=== PATIENT | male | born 1965 | race Caucasian/White ===

== ENCOUNTER 2017-06-01 11:17 | Inpatient (IN) | payer BC, MEDICAID ==
[~2017-06-01] VITALS: Ht 165.1 cm; Wt 77.6 kg
[2017-06-01] MEDS ORDERED: PALI39DI IM (11:37)
[2017-06-01] MEDS ORDERED: HALO1 PO (11:37)
[2017-06-01 12:43] LABS: BASOPHILS % (AUTO) 0.6 % (0.0-2.0); HEMATOCRIT 48.6 % (41-53); HEMOGLOBIN 16.4 g/dL (13.5-17.5); LYMPHOCYTES # (AUTO) 3.1 K/uL (1.0-4.8); LYMPHOCYTES % (AUTO) 26.4 % (22.0-44.0); MEAN CORPUSCULAR HEMOGLOBIN 30.5 pg (26.0-34.0); MEAN CORPUSCULAR HGB CONC 33.8 G/dL (31.0-37.0); MEAN CORPUSCULAR VOLUME 90 fL (80-100); MONOCYTES # (AUTO) 0.8 K/uL (0.1-1.0); MONOCYTES % (AUTO) 6.9 % (2.0-9.0); NEUTROPHILS # (AUTO) 7.4 K/uL (1.8-7.7); NEUTROPHILS % (AUTO) 64.1 % (40.0-70.0); PLATELET COUNT (AUTO) 263 K/uL (150-450); RED BLOOD CELL COUNT(AUTO) 5.39 MIL/uL (4.50-5.90); RED CELL DISTRIBUTION WIDTH 13.9 % (11.5-14.5)
[2017-06-01] MEDS ORDERED: HALOPERIDOL 5 MG TABLET PO ONE (12:45)
[2017-06-01] MEDS ORDERED: LORazepam 2 MG TABLET PO ONE (12:45)
[2017-06-01 12:54] LABS: ANION GAP 9 mmol/L (8-16); CALCIUM, TOTAL 8.9 mg/dL (8.8-10.5); CARBON DIOXIDE 27 mmol/L (22-29); CHLORIDE 107 mmol/L (98-107); CREATININE 0.93 mg/dL (0.60-1.30); GLOMERULAR FILTR. RATE CALC > 60 mL/min (>60); GLUCOSE,RANDOM 94 mg/dL (70-110); SODIUM SERUM 143 mmol/L (136-145); UREA NITROGEN, BLOOD 11 mg/dL (7-18)
[2017-06-01 13:01] LABS: ALANINE AMINOTRANSFERASE 28 U/L (12-78); ALBUMIN 3.6 g/dL (3.4-5.0); ALKALINE PHOSPHATASE 94 U/L (46-116); ASPARTATE AMINOTRANSFERASE 25 U/L (15-37); BILIRUBIN,TOTAL 0.4 mg/dL (0.1-1.0); TOTAL PROTEIN, SERUM 7.5 g/dL (6.4-8.2)
[2017-06-01] MEDS ORDERED: LORazepam 2 MG TABLET PO PRN (13:15)
[2017-06-01] MEDS ORDERED: ZOLPIDEM TARTRATE 10 MG TABLET PO PRN (13:15)
[2017-06-01] MEDS ORDERED: HALOPERIDOL 5 MG TABLET PO PRN (13:15)
[2017-06-01 17:48] VITALS: BP 117/74
[2017-06-02 00:42] VITALS: BP 121/50
[2017-06-02 08:34] VITALS: BP 140/89
[2017-06-02] MEDS: HALOPERIDOL 5 MG TABLET PO SCH ×2 (08:43→16:33)
[2017-06-02] MEDS ORDERED: BISACODYL 5 MG EC TABLET PO PRN (08:45)
[2017-06-02 09:56] LABS: FREE T4 (FREE THYROXINE) 0.86 ng/dL (0.76-1.46); THYROID STIMULATING HORMONE 0.64 uIU/mL (0.36-3.74)
[2017-06-02 16:16] VITALS: BP 114/67
[2017-06-03 01:08] VITALS: BP_SYST 110; BP_SYST 118; BP_DIAS 65; BP_DIAS 67
[2017-06-03 08:30] VITALS: BP 118/83
[2017-06-03] MEDS: HALOPERIDOL 5 MG TABLET PO SCH ×2 (08:58→16:36)
[2017-06-03] MEDS: SERTRALINE HCL 50 MG TABLET PO SCH (08:58)
[2017-06-03] MEDS ORDERED: PALI234D IM (11:45)
[2017-06-03] MEDS ORDERED: HALO5 PO (11:45)
[2017-06-03] MEDS: NICOTINE 14 MG/24 HOUR PATCH TD SCH (12:22)
[2017-06-03 17:07] VITALS: BP 142/72
[2017-06-04 01:05] VITALS: BP 133/87
[2017-06-04 08:09] VITALS: BP 153/96
[2017-06-04] MEDS: SERTRALINE HCL 50 MG TABLET PO SCH (08:56)
[2017-06-04] MEDS: HALOPERIDOL 5 MG TABLET PO SCH ×2 (08:56→16:30)
[2017-06-04] MEDS: NICOTINE 14 MG/24 HOUR PATCH TD SCH (08:57)
[2017-06-04] MEDS: LISINOPRIL 20 MG TABLET PO SCH (10:23)
[2017-06-04 12:02] VITALS: BP 138/71
[2017-06-04 16:26] VITALS: BP 107/71
[2017-06-05 06:15] VITALS: BP 104/64
[2017-06-05 08:44] VITALS: BP 107/60
[2017-06-05] MEDS: SERTRALINE HCL 50 MG TABLET PO SCH (08:44)
[2017-06-05] MEDS: HALOPERIDOL 5 MG TABLET PO SCH ×2 (08:44→16:17)
[2017-06-05] MEDS: NICOTINE 14 MG/24 HOUR PATCH TD SCH (08:44)
[2017-06-05] MEDS: LISINOPRIL 20 MG TABLET PO SCH (08:51)
[2017-06-05 16:23] VITALS: BP 107/71
[2017-06-06 00:39] VITALS: BP 106/68
[2017-06-06 08:20] VITALS: BP 139/60
[2017-06-06] MEDS: NICOTINE 14 MG/24 HOUR PATCH TD SCH (08:34)
[2017-06-06] MEDS: HALOPERIDOL 5 MG TABLET PO SCH ×2 (08:34→16:14)
[2017-06-06] MEDS: SERTRALINE HCL 50 MG TABLET PO SCH (08:34)
[2017-06-06] MEDS: LISINOPRIL 20 MG TABLET PO SCH (08:34)
[2017-06-06] MEDS ORDERED: SERT50TA12 PO (15:47)
[2017-06-06] MEDS ORDERED: LISI-662 PO (15:48)
== END 2017-06-06 17:15 | disposition home or self-care (01) | DRG 885 ==
LOC: EMS 11:19 → B2X 14:21
PROVIDERS: ADMIT Psychiatry & Neurology Psychiatry; ATTEND Psychiatry & Neurology Psychiatry
DX: F25.0 Schizoaffective disorder, bipolar type (principal); R45.851 Suicidal ideations; Z91.14 Patient's other noncompliance with medication regimen; D72.829 Elevated white blood cell count, unspecified; F17.200 Nicotine dependence, unspecified, uncomplicated; K59.00 Constipation, unspecified; Z91.19 Patient's noncompliance with other medical treatment and regimen
CPT/HCPCS: 84439; 84443; G0480

== ENCOUNTER 2017-06-22 15:52 | Inpatient (IN) | payer BC, MEDICAID ==
[~2017-06-22] VITALS: Ht 165.1 cm; Wt 73.7 kg
[~2017-06-22 15:52] MED LIST: HALO5 PO; LISI-662 PO; SERT50TA12 PO
[2017-06-22 17:46] VITALS: BP 97/55
[2017-06-22] MEDS ORDERED: HALOPERIDOL 5 MG TABLET PO PRN (18:00)
[2017-06-22] MEDS ORDERED: ZOLPIDEM TARTRATE 10 MG TABLET PO PRN (18:00)
[2017-06-22 18:40] VITALS: BP 101/64
[2017-06-22] MEDS: LORazepam 2 MG TABLET PO PRN (18:45)
[2017-06-22] MEDS: HALOPERIDOL 5 MG TABLET PO SCH (18:45)
[2017-06-23 00:15] VITALS: BP 110/61
[2017-06-23] MEDS: HALOPERIDOL 5 MG TABLET PO SCH ×2 (08:24→16:06)
[2017-06-23] MEDS: SERTRALINE HCL 50 MG TABLET PO SCH (08:24)
[2017-06-23] MEDS: NICOTINE 21 MG/24 HOUR PATCH TD SCH (08:25)
[2017-06-23 08:27] VITALS: BP 108/62
[2017-06-23 08:28] LABS: BASOPHILS % (AUTO) 0.6 % (0.0-2.0); EOSINOPHILS % (AUTO) 2.2 % (1.0-6.0); HEMATOCRIT 43.8 % (41-53); HEMOGLOBIN 15.2 g/dL (13.5-17.5); LYMPHOCYTES # (AUTO) 2.5 K/uL (1.0-4.8); LYMPHOCYTES % (AUTO) 22.2 % (22.0-44.0); MEAN CORPUSCULAR HEMOGLOBIN 31.1 pg (26.0-34.0); MEAN CORPUSCULAR HGB CONC 34.7 G/dL (31.0-37.0); MEAN CORPUSCULAR VOLUME 90 fL (80-100); MONOCYTES # (AUTO) 1.4 K/uL (0.1-1.0); NEUTROPHILS # (AUTO) 7.2 K/uL (1.8-7.7); PLATELET COUNT (AUTO) 210 K/uL (150-450); RED BLOOD CELL COUNT(AUTO) 4.89 MIL/uL (4.50-5.90); RED CELL DISTRIBUTION WIDTH 13.4 % (11.5-14.5)
[2017-06-23 08:55] LABS: HEMOGLOBIN A1C 5.4 % (4.5-6.2)
[2017-06-23 09:18] LABS: ALANINE AMINOTRANSFERASE 23 U/L (12-78); ALBUMIN 3.2 g/dL (3.4-5.0); ALKALINE PHOSPHATASE 95 U/L (46-116); ANION GAP 8 mmol/L (8-16); ASPARTATE AMINOTRANSFERASE 19 U/L (15-37); BILIRUBIN,TOTAL 0.6 mg/dL (0.1-1.0); CALCIUM, TOTAL 8.3 mg/dL (8.8-10.5); CARBON DIOXIDE 28 mmol/L (22-29); CHLORIDE 104 mmol/L (98-107); CHOL/HDL RATIO 3.4 (4.2-7.3); CHOLESTEROL 116 mg/dL (131-200); CREATININE 0.74 mg/dL (0.60-1.30); FREE T4 (FREE THYROXINE) 1.01 ng/dL (0.76-1.46); GLOMERULAR FILTR. RATE CALC > 60 mL/min (>60); GLUCOSE,RANDOM 94 mg/dL (70-110); HDL CHOLESTEROL 34 mg/dL (40-60); LDL CHOL (CALC.) 66 mg/dL (0-130); POTASSIUM 3.8 mmol/L (3.5-5.1); SODIUM SERUM 140 mmol/L (136-145); THYROID STIMULATING HORMONE 0.59 uIU/mL (0.36-3.74); TOTAL PROTEIN, SERUM 6.4 g/dL (6.4-8.2); TRIGLYCERIDES 81 mg/dL (15-150); UREA NITROGEN, BLOOD 12 mg/dL (7-18)
[2017-06-23 17:16] VITALS: BP 101/63
[2017-06-24 01:41] VITALS: BP 104/65
[2017-06-24 08:07] VITALS: BP 116/61
[2017-06-24] MEDS: SERTRALINE HCL 50 MG TABLET PO SCH (08:19)
[2017-06-24] MEDS: HALOPERIDOL 5 MG TABLET PO SCH ×2 (08:19→16:15)
[2017-06-24] MEDS: NICOTINE 21 MG/24 HOUR PATCH TD SCH (08:19)
[2017-06-24 16:03] VITALS: BP 116/72
[2017-06-25 06:37] VITALS: BP 105/68
[2017-06-25 08:02] VITALS: BP 104/61
[2017-06-25] MEDS: HALOPERIDOL 5 MG TABLET PO SCH ×2 (08:07→16:01)
[2017-06-25] MEDS: SERTRALINE HCL 50 MG TABLET PO SCH (08:07)
[2017-06-25] MEDS: NICOTINE 21 MG/24 HOUR PATCH TD SCH (08:09)
[2017-06-25 16:13] VITALS: BP 112/70
[2017-06-25] MEDS: LORazepam 2 MG TABLET PO PRN (17:19)
[2017-06-26 01:15] VITALS: BP 108/71
[2017-06-26 08:08] VITALS: BP 127/71
[2017-06-26] MEDS: HALOPERIDOL 5 MG TABLET PO SCH (08:24)
[2017-06-26] MEDS: SERTRALINE HCL 50 MG TABLET PO SCH (08:24)
[2017-06-26] MEDS: NICOTINE 21 MG/24 HOUR PATCH TD SCH (08:24)
[2017-06-26 16:04] VITALS: BP 109/63
[2017-06-26] MEDS: HALOPERIDOL 10 MG TABLET PO SCH (16:42)
[2017-06-26] MEDS: BENZTROPINE MESYLATE 0.5 MG TABLET PO SCH (16:42)
[2017-06-27 05:58] VITALS: BP 135/67
[2017-06-27] MEDS: SERTRALINE HCL 50 MG TABLET PO SCH (08:01)
[2017-06-27] MEDS: BENZTROPINE MESYLATE 0.5 MG TABLET PO SCH (08:01)
[2017-06-27 08:02] VITALS: BP 112/78
[2017-06-27] MEDS: HALOPERIDOL 10 MG TABLET PO SCH ×2 (08:02→16:57)
[2017-06-27] MEDS: NICOTINE 21 MG/24 HOUR PATCH TD SCH (08:02)
[2017-06-27 16:55] VITALS: BP 109/64
[2017-06-27] MEDS: BENZTROPINE MESYLATE 2 MG TABLET PO SCH (16:57)
[2017-06-28 01:56] VITALS: BP 102/64
[2017-06-28 08:06] VITALS: BP 103/53
[2017-06-28] MEDS: HALOPERIDOL 10 MG TABLET PO SCH ×2 (08:32→16:31)
[2017-06-28] MEDS: BENZTROPINE MESYLATE 2 MG TABLET PO SCH ×2 (08:32→16:31)
[2017-06-28] MEDS: SERTRALINE HCL 50 MG TABLET PO SCH (08:32)
[2017-06-28] MEDS: NICOTINE 21 MG/24 HOUR PATCH TD SCH (08:32)
[2017-06-28] MEDS ORDERED: HALOPERIDOL DECANOATE 100 MG/ML VIAL IM SCH (09:00)
[2017-06-28 16:16] VITALS: BP 111/72
[2017-06-28 17:08] VITALS: BP 124/84
[2017-06-28] MEDS ORDERED: ACETAMINOPHEN 325 MG TABLET PO PRN (17:15)
[2017-06-29 00:06] VITALS: BP 104/64
[2017-06-29 08:00] VITALS: BP 114/66
[2017-06-29] MEDS: HALOPERIDOL 10 MG TABLET PO SCH ×2 (08:20→16:31)
[2017-06-29] MEDS: BENZTROPINE MESYLATE 2 MG TABLET PO SCH ×2 (08:20→16:31)
[2017-06-29] MEDS: SERTRALINE HCL 50 MG TABLET PO SCH (08:20)
[2017-06-29] MEDS: NICOTINE 21 MG/24 HOUR PATCH TD SCH (08:20)
[2017-06-29 16:12] VITALS: BP 103/63
[2017-06-30 06:08] VITALS: BP 105/63
[2017-06-30 08:08] VITALS: BP 124/70
[2017-06-30] MEDS: BENZTROPINE MESYLATE 2 MG TABLET PO SCH ×2 (08:16→16:16)
[2017-06-30] MEDS: NICOTINE 21 MG/24 HOUR PATCH TD SCH (08:16)
[2017-06-30] MEDS: SERTRALINE HCL 50 MG TABLET PO SCH (08:16)
[2017-06-30] MEDS: HALOPERIDOL 10 MG TABLET PO SCH ×2 (08:16→16:17)
[2017-06-30 16:24] VITALS: BP 115/69
[2017-07-01 06:39] VITALS: BP 102/63
[2017-07-01] MEDS: BENZTROPINE MESYLATE 2 MG TABLET PO SCH ×2 (08:07→16:32)
[2017-07-01] MEDS: SERTRALINE HCL 50 MG TABLET PO SCH (08:07)
[2017-07-01] MEDS: NICOTINE 21 MG/24 HOUR PATCH TD SCH (08:08)
[2017-07-01] MEDS: HALOPERIDOL 10 MG TABLET PO SCH ×2 (08:08→16:32)
[2017-07-01 08:42] VITALS: BP 118/60
[2017-07-01 16:28] VITALS: BP 108/78
[2017-07-02 00:44] VITALS: BP 103/67
[2017-07-02] MEDS: SERTRALINE HCL 50 MG TABLET PO SCH (08:12)
[2017-07-02] MEDS: HALOPERIDOL 10 MG TABLET PO SCH ×2 (08:12→16:06)
[2017-07-02] MEDS: BENZTROPINE MESYLATE 2 MG TABLET PO SCH ×2 (08:12→16:06)
[2017-07-02] MEDS: NICOTINE 21 MG/24 HOUR PATCH TD SCH (08:12)
[2017-07-02 08:41] VITALS: BP 100/60
[2017-07-02 16:00] VITALS: BP 106/60
[2017-07-03 00:23] VITALS: BP 105/61
[2017-07-03 08:47] VITALS: BP 100/77
[2017-07-03] MEDS: HALOPERIDOL 10 MG TABLET PO SCH ×2 (08:52→16:44)
[2017-07-03] MEDS: BENZTROPINE MESYLATE 2 MG TABLET PO SCH ×2 (08:52→16:44)
[2017-07-03] MEDS: SERTRALINE HCL 50 MG TABLET PO SCH (08:52)
[2017-07-03] MEDS: NICOTINE 21 MG/24 HOUR PATCH TD SCH (08:52)
[2017-07-03 16:23] VITALS: BP 108/68
[2017-07-04 05:59] VITALS: BP 115/79
[2017-07-04] MEDS: HALOPERIDOL 10 MG TABLET PO SCH ×2 (08:11→16:30)
[2017-07-04] MEDS: BENZTROPINE MESYLATE 2 MG TABLET PO SCH ×2 (08:11→16:30)
[2017-07-04] MEDS: SERTRALINE HCL 50 MG TABLET PO SCH (08:11)
[2017-07-04] MEDS: NICOTINE 21 MG/24 HOUR PATCH TD SCH (08:12)
[2017-07-04 08:46] VITALS: BP 119/69
[2017-07-04] MEDS ORDERED: BENZ2TAB10 PO (09:43)
[2017-07-04] MEDS ORDERED: HALO5TAB23 PO (09:43)
[2017-07-04] MEDS ORDERED: SERT25TA PO (09:44)
[2017-07-04] MEDS ORDERED: NICO-704 TD (09:45)
[2017-07-04] MEDS ORDERED: HALO100V4 IM (09:46)
[2017-07-04 16:01] VITALS: BP 108/62
[2017-07-05 01:56] VITALS: BP 102/65
[2017-07-05] MEDS: SERTRALINE HCL 50 MG TABLET PO SCH (08:30)
[2017-07-05] MEDS: BENZTROPINE MESYLATE 2 MG TABLET PO SCH ×2 (08:30→16:41)
[2017-07-05] MEDS: NICOTINE 21 MG/24 HOUR PATCH TD SCH (08:30)
[2017-07-05] MEDS: HALOPERIDOL 10 MG TABLET PO SCH ×2 (08:30→16:41)
[2017-07-05 09:20] VITALS: BP 105/62
[2017-07-05 16:16] VITALS: BP 102/62
[2017-07-06 06:42] VITALS: BP 100/60
[2017-07-06] MEDS: SERTRALINE HCL 50 MG TABLET PO SCH (08:07)
[2017-07-06] MEDS: NICOTINE 21 MG/24 HOUR PATCH TD SCH (08:07)
[2017-07-06] MEDS: BENZTROPINE MESYLATE 2 MG TABLET PO SCH ×2 (08:07→16:32)
[2017-07-06] MEDS: HALOPERIDOL 10 MG TABLET PO SCH ×2 (08:07→16:32)
[2017-07-06 08:30] VITALS: BP 106/69
[2017-07-06 16:17] VITALS: BP 103/62
[2017-07-07 00:20] VITALS: BP 100/63
[2017-07-07 05:13] VITALS: BP 115/68
[2017-07-07 08:16] VITALS: BP 102/60
[2017-07-07] MEDS: SERTRALINE HCL 50 MG TABLET PO SCH (08:52)
[2017-07-07] MEDS: HALOPERIDOL 10 MG TABLET PO SCH ×2 (08:52→16:48)
[2017-07-07] MEDS: BENZTROPINE MESYLATE 2 MG TABLET PO SCH ×2 (08:57→16:48)
[2017-07-07] MEDS: NICOTINE 21 MG/24 HOUR PATCH TD SCH (08:58)
[2017-07-07 16:39] VITALS: BP 101/69
[2017-07-08 03:00] VITALS: BP 103/66
[2017-07-08 08:00] VITALS: BP 101/54
[2017-07-08] MEDS: NICOTINE 21 MG/24 HOUR PATCH TD SCH (08:12)
[2017-07-08] MEDS: BENZTROPINE MESYLATE 2 MG TABLET PO SCH ×2 (08:12→17:13)
[2017-07-08] MEDS: HALOPERIDOL 10 MG TABLET PO SCH ×2 (08:12→17:13)
[2017-07-08] MEDS: SERTRALINE HCL 50 MG TABLET PO SCH (08:12)
[2017-07-08 16:21] VITALS: BP 102/66
[2017-07-09] VITALS: BP 102/60
[2017-07-09] MEDS: NICOTINE 21 MG/24 HOUR PATCH TD SCH (08:10)
[2017-07-09] MEDS: HALOPERIDOL 10 MG TABLET PO SCH ×2 (08:10→16:53)
[2017-07-09] MEDS: SERTRALINE HCL 50 MG TABLET PO SCH (08:10)
[2017-07-09] MEDS: BENZTROPINE MESYLATE 2 MG TABLET PO SCH ×2 (08:10→16:53)
[2017-07-09 09:11] VITALS: BP 98/66
[2017-07-09 16:25] VITALS: BP 104/62
[2017-07-10 01:25] VITALS: BP 102/60
[2017-07-10] MEDS: BENZTROPINE MESYLATE 2 MG TABLET PO SCH (08:13)
[2017-07-10] MEDS: HALOPERIDOL 10 MG TABLET PO SCH (08:13)
[2017-07-10] MEDS: NICOTINE 21 MG/24 HOUR PATCH TD SCH (08:13)
[2017-07-10] MEDS: SERTRALINE HCL 50 MG TABLET PO SCH (08:13)
[2017-07-10] MEDS ORDERED: HALO100V4 IM (08:37)
[2017-07-10 09:19] VITALS: BP 109/53
== END 2017-07-10 10:17 | disposition home or self-care (01) | DRG 885 ==
LOC: EDBD → B2X 17:52
PROVIDERS: ADMIT Psychiatry & Neurology Psychiatry; ATTEND Psychiatry & Neurology Psychiatry
DX: F25.0 Schizoaffective disorder, bipolar type (principal); R45.851 Suicidal ideations; F29 Unspecified psychosis not due to a substance or known physiological condition; F41.9 Anxiety disorder, unspecified; I10 Essential (primary) hypertension; D72.829 Elevated white blood cell count, unspecified; Z79.899 Other long term (current) drug therapy; Z91.14 Patient's other noncompliance with medication regimen
CPT/HCPCS: 83036; 84439; 84443; 87081; J1631

== ENCOUNTER 2017-09-18 17:02 | Inpatient (IN) | payer MEDICARE, MEDICAID ==
[~2017-09-18] VITALS: Ht 165.1 cm; Wt 83.5 kg
[~2017-09-18 17:02] MED LIST changes: +BENZ2TAB10 PO; +HALO10 PO; +HALO100V4 IM; -HALO5 PO; -LISI-662 PO; +LORA10TA7 PO
[2017-09-18] MEDS ORDERED: LORazepam 2 MG TABLET PO PRN (18:00)
[2017-09-18] MEDS ORDERED: HALOPERIDOL 5 MG TABLET PO PRN (18:00)
[2017-09-18] MEDS ORDERED: ZOLPIDEM TARTRATE 10 MG TABLET PO PRN (18:00)
[2017-09-18 18:46] VITALS: BP 100/72
[2017-09-18] MEDS ORDERED: PNEUMOCOCCAL VACCINE POLYVALENT 0.5 ML VIAL [PPSV23] IM ONE (20:30)
[2017-09-18] MEDS: BENZTROPINE MESYLATE 2 MG TABLET PO SCH (20:49)
[2017-09-18] MEDS: HALOPERIDOL 10 MG TABLET PO SCH (20:50)
[2017-09-19 00:05] VITALS: BP 102/60
[2017-09-19 08:21] VITALS: BP 105/67
[2017-09-19] MEDS: HALOPERIDOL 10 MG TABLET PO SCH ×2 (08:46→16:40)
[2017-09-19] MEDS: BENZTROPINE MESYLATE 2 MG TABLET PO SCH ×2 (08:46→16:40)
[2017-09-19] MEDS: SERTRALINE HCL 50 MG TABLET PO SCH (08:46)
[2017-09-19 08:53] LABS: BASOPHILS % (AUTO) 0.4 % (0.0-2.0); EOSINOPHILS % (AUTO) 1.7 % (1.0-6.0); HEMATOCRIT 44.4 % (41-53); HEMOGLOBIN 15.4 g/dL (13.5-17.5); LYMPHOCYTES # (AUTO) 2.6 K/uL (1.0-4.8); LYMPHOCYTES % (AUTO) 21.4 % (22.0-44.0); MEAN CORPUSCULAR HEMOGLOBIN 31.2 pg (26.0-34.0); MEAN CORPUSCULAR HGB CONC 34.7 G/dL (31.0-37.0); MEAN CORPUSCULAR VOLUME 90 fL (80-100); MONOCYTES # (AUTO) 0.8 K/uL (0.1-1.0); MONOCYTES % (AUTO) 6.7 % (2.0-9.0); NEUTROPHILS # (AUTO) 8.6 K/uL (1.8-7.7); NEUTROPHILS % (AUTO) 69.8 % (40.0-70.0); PLATELET COUNT (AUTO) 248 K/uL (150-450); RED BLOOD CELL COUNT(AUTO) 4.94 MIL/uL (4.50-5.90); RED CELL DISTRIBUTION WIDTH 13.8 % (11.5-14.5)
[2017-09-19 09:47] LABS: HEMOGLOBIN A1C 5.9 % (4.5-6.2)
[2017-09-19 10:54] LABS: ALANINE AMINOTRANSFERASE 27 U/L (12-78); ALBUMIN 3.2 g/dL (3.4-5.0); ALKALINE PHOSPHATASE 89 U/L (46-116); ANION GAP 9 mmol/L (8-16); ASPARTATE AMINOTRANSFERASE 20 U/L (15-37); BILIRUBIN,TOTAL 0.2 mg/dL (0.1-1.0); CALCIUM, TOTAL 8.2 mg/dL (8.8-10.5); CARBON DIOXIDE 26 mmol/L (22-29); CHLORIDE 104 mmol/L (98-107); CHOLESTEROL 155 mg/dL (131-200); CREATININE 0.98 mg/dL (0.60-1.30); GLOMERULAR FILTR. RATE CALC > 60 mL/min (>60); GLUCOSE,RANDOM 98 mg/dL (70-110); HDL CHOLESTEROL 31 mg/dL (40-60); LDL CHOL (CALC.) 71 mg/dL (0-130); POTASSIUM 3.9 mmol/L (3.5-5.1); SODIUM SERUM 139 mmol/L (136-145); THYROID STIMULATING HORMONE 0.84 uIU/mL (0.36-3.74); TRIGLYCERIDES 263 mg/dL (15-150); UREA NITROGEN, BLOOD 17 mg/dL (7-18)
[2017-09-19 13:02] LABS: FREE T4 (FREE THYROXINE) 0.82 ng/dL (0.76-1.46)
[2017-09-19 16:17] VITALS: BP 104/65
[2017-09-20 01:50] VITALS: BP 106/64
[2017-09-20 08:36] VITALS: BP 108/66
[2017-09-20] MEDS: HALOPERIDOL 10 MG TABLET PO SCH ×2 (09:01→16:36)
[2017-09-20] MEDS: BENZTROPINE MESYLATE 2 MG TABLET PO SCH ×2 (09:01→16:36)
[2017-09-20] MEDS: SERTRALINE HCL 50 MG TABLET PO SCH (09:01)
[2017-09-20] MEDS: HALOPERIDOL DECANOATE 100 MG/ML VIAL IM SCH (09:07)
[2017-09-20 09:38] LABS: BASOPHILS % (AUTO) 0.4 % (0.0-2.0); EOSINOPHILS % (AUTO) 1.7 % (1.0-6.0); HEMATOCRIT 46.1 % (41-53); HEMOGLOBIN 16.2 g/dL (13.5-17.5); LYMPHOCYTES # (AUTO) 2.7 K/uL (1.0-4.8); LYMPHOCYTES % (AUTO) 26.8 % (22.0-44.0); MEAN CORPUSCULAR HEMOGLOBIN 31.6 pg (26.0-34.0); MEAN CORPUSCULAR HGB CONC 35.2 G/dL (31.0-37.0); MEAN CORPUSCULAR VOLUME 90 fL (80-100); MONOCYTES # (AUTO) 0.7 K/uL (0.1-1.0); MONOCYTES % (AUTO) 7.2 % (2.0-9.0); NEUTROPHILS # (AUTO) 6.4 K/uL (1.8-7.7); NEUTROPHILS % (AUTO) 63.9 % (40.0-70.0); PLATELET COUNT (AUTO) 255 K/uL (150-450); RED BLOOD CELL COUNT(AUTO) 5.13 MIL/uL (4.50-5.90)
[2017-09-20 16:05] VITALS: BP 105/63
[2017-09-21 01:25] VITALS: BP 102/75
[2017-09-21 07:41] VITALS: BP 114/60
[2017-09-21 08:07] VITALS: BP 114/60
[2017-09-21] MEDS: SERTRALINE HCL 50 MG TABLET PO SCH (08:13)
[2017-09-21] MEDS: HALOPERIDOL 10 MG TABLET PO SCH ×2 (08:13→16:41)
[2017-09-21] MEDS: BENZTROPINE MESYLATE 2 MG TABLET PO SCH ×2 (08:13→16:41)
[2017-09-21 16:32] VITALS: BP 104/67
[2017-09-22 01:51] VITALS: BP 107/62
[2017-09-22 08:33] VITALS: BP 114/61
[2017-09-22] MEDS: HALOPERIDOL 10 MG TABLET PO SCH ×2 (08:50→16:36)
[2017-09-22] MEDS: SERTRALINE HCL 50 MG TABLET PO SCH (08:50)
[2017-09-22] MEDS: BENZTROPINE MESYLATE 2 MG TABLET PO SCH ×2 (08:50→16:36)
[2017-09-22 16:17] VITALS: BP 103/63
[2017-09-23 04:55] VITALS: BP 121/69
[2017-09-23 08:09] VITALS: BP 107/69
[2017-09-23] MEDS: BENZTROPINE MESYLATE 2 MG TABLET PO SCH ×2 (08:47→16:37)
[2017-09-23] MEDS: SERTRALINE HCL 50 MG TABLET PO SCH (08:47)
[2017-09-23] MEDS: HALOPERIDOL 10 MG TABLET PO SCH ×2 (08:47→16:37)
[2017-09-23 16:05] VITALS: BP 110/71
[2017-09-24 05:44] VITALS: BP 118/80
[2017-09-24 08:29] VITALS: BP 103/70
[2017-09-24] MEDS: BENZTROPINE MESYLATE 2 MG TABLET PO SCH ×2 (08:46→16:11)
[2017-09-24] MEDS: HALOPERIDOL 10 MG TABLET PO SCH ×2 (08:46→16:11)
[2017-09-24] MEDS: SERTRALINE HCL 50 MG TABLET PO SCH (08:46)
[2017-09-24 16:12] VITALS: BP 121/65
[2017-09-25 06:28] VITALS: BP 100/60
[2017-09-25 08:33] VITALS: BP 101/71
[2017-09-25] MEDS: HALOPERIDOL 10 MG TABLET PO SCH ×2 (09:08→16:37)
[2017-09-25] MEDS: SERTRALINE HCL 50 MG TABLET PO SCH (09:09)
[2017-09-25] MEDS: BENZTROPINE MESYLATE 2 MG TABLET PO SCH ×2 (09:09→16:37)
[2017-09-25 16:06] VITALS: BP 109/65
[2017-09-26 05:10] VITALS: BP 118/73
[2017-09-26] MEDS: SERTRALINE HCL 50 MG TABLET PO SCH (08:12)
[2017-09-26] MEDS: HALOPERIDOL 10 MG TABLET PO SCH ×2 (08:12→16:44)
[2017-09-26] MEDS: BENZTROPINE MESYLATE 2 MG TABLET PO SCH ×2 (08:12→16:44)
[2017-09-26 08:17] VITALS: BP 105/60
[2017-09-26 16:00] VITALS: BP 126/74
[2017-09-27 05:57] VITALS: BP 116/60
[2017-09-27] MEDS: SERTRALINE HCL 50 MG TABLET PO SCH (08:35)
[2017-09-27] MEDS: BENZTROPINE MESYLATE 2 MG TABLET PO SCH ×2 (08:35→16:42)
[2017-09-27] MEDS: HALOPERIDOL 10 MG TABLET PO SCH ×2 (08:35→16:42)
[2017-09-27 09:11] VITALS: BP 107/58
[2017-09-27 17:09] VITALS: BP 126/71
[2017-09-28 06:47] VITALS: BP 103/60
[2017-09-28 08:00] VITALS: BP 110/62
[2017-09-28] MEDS: BENZTROPINE MESYLATE 2 MG TABLET PO SCH ×2 (08:20→16:38)
[2017-09-28] MEDS: HALOPERIDOL 10 MG TABLET PO SCH ×2 (08:20→16:38)
[2017-09-28] MEDS: SERTRALINE HCL 50 MG TABLET PO SCH (08:20)
[2017-09-28 16:23] VITALS: BP 107/61
[2017-09-29 06:09] VITALS: BP 118/63
[2017-09-29 08:27] VITALS: BP 116/65
[2017-09-29] MEDS: SERTRALINE HCL 50 MG TABLET PO SCH (08:39)
[2017-09-29] MEDS: HALOPERIDOL 10 MG TABLET PO SCH ×2 (08:39→16:19)
[2017-09-29] MEDS: BENZTROPINE MESYLATE 2 MG TABLET PO SCH ×2 (08:39→16:19)
[2017-09-29 16:12] VITALS: BP 104/65
[2017-09-30 01:45] VITALS: BP 103/80
[2017-09-30] MEDS ORDERED: LORazepam 2 MG TABLET PO PRN (07:30)
[2017-09-30] MEDS ORDERED: ZOLPIDEM TARTRATE 5 MG TABLET PO PRN (07:30)
[2017-09-30] MEDS: BENZTROPINE MESYLATE 2 MG TABLET PO SCH ×2 (08:05→16:25)
[2017-09-30] MEDS: HALOPERIDOL 10 MG TABLET PO SCH ×2 (08:05→16:25)
[2017-09-30] MEDS: SERTRALINE HCL 50 MG TABLET PO SCH (08:05)
[2017-09-30 08:19] VITALS: BP 117/65
[2017-09-30 16:10] VITALS: BP 100/62
[2017-10-01 01:00] VITALS: BP 100/67
[2017-10-01 08:31] VITALS: BP 101/65
[2017-10-01] MEDS: SERTRALINE HCL 50 MG TABLET PO SCH (08:35)
[2017-10-01] MEDS: BENZTROPINE MESYLATE 2 MG TABLET PO SCH ×2 (08:35→16:13)
[2017-10-01] MEDS: HALOPERIDOL 10 MG TABLET PO SCH ×2 (08:35→16:13)
[2017-10-01 16:08] VITALS: BP 102/61
[2017-10-02 00:17] VITALS: BP 105/64
[2017-10-02] MEDS: HALOPERIDOL 10 MG TABLET PO SCH ×2 (08:06→16:24)
[2017-10-02] MEDS: BENZTROPINE MESYLATE 2 MG TABLET PO SCH ×2 (08:06→16:24)
[2017-10-02] MEDS: SERTRALINE HCL 50 MG TABLET PO SCH (08:06)
[2017-10-02 08:11] VITALS: BP 109/60
[2017-10-02 16:20] VITALS: BP 124/60
[2017-10-03 06:19] VITALS: BP 104/60
[2017-10-03] MEDS: HALOPERIDOL 10 MG TABLET PO SCH ×2 (08:06→16:36)
[2017-10-03] MEDS: BENZTROPINE MESYLATE 2 MG TABLET PO SCH ×2 (08:06→16:36)
[2017-10-03] MEDS: SERTRALINE HCL 50 MG TABLET PO SCH (08:06)
[2017-10-03 08:30] VITALS: BP 122/60
[2017-10-03 16:05] VITALS: BP 106/63
[2017-10-04 01:41] VITALS: BP 116/66
[2017-10-04 08:00] VITALS: BP 105/61
[2017-10-04] MEDS: HALOPERIDOL 10 MG TABLET PO SCH ×2 (08:07→16:42)
[2017-10-04] MEDS: BENZTROPINE MESYLATE 2 MG TABLET PO SCH ×2 (08:07→16:42)
[2017-10-04] MEDS: SERTRALINE HCL 50 MG TABLET PO SCH (08:07)
[2017-10-04 16:04] VITALS: BP 101/60
[2017-10-05 01:34] VITALS: BP 104/63
[2017-10-05] MEDS: HALOPERIDOL 10 MG TABLET PO SCH ×2 (08:06→16:43)
[2017-10-05] MEDS: SERTRALINE HCL 50 MG TABLET PO SCH (08:06)
[2017-10-05] MEDS: BENZTROPINE MESYLATE 2 MG TABLET PO SCH ×2 (08:06→16:43)
[2017-10-05 08:12] VITALS: BP 100/64
[2017-10-05 16:04] VITALS: BP 102/62
[2017-10-06 02:38] VITALS: BP 105/70
[2017-10-06 08:26] VITALS: BP 130/63
[2017-10-06] MEDS: SERTRALINE HCL 50 MG TABLET PO SCH (08:44)
[2017-10-06] MEDS: BENZTROPINE MESYLATE 2 MG TABLET PO SCH ×2 (08:44→16:14)
[2017-10-06] MEDS: HALOPERIDOL 10 MG TABLET PO SCH ×2 (08:44→16:14)
[2017-10-06 16:06] VITALS: BP 101/63
[2017-10-07 05:50] VITALS: BP 108/67
[2017-10-07] MEDS: SERTRALINE HCL 50 MG TABLET PO SCH (08:03)
[2017-10-07] MEDS: BENZTROPINE MESYLATE 2 MG TABLET PO SCH ×2 (08:03→16:43)
[2017-10-07] MEDS: HALOPERIDOL 10 MG TABLET PO SCH ×2 (08:03→16:42)
[2017-10-07 08:31] VITALS: BP 104/65
[2017-10-07 16:05] VITALS: BP 108/66
[2017-10-08 00:32] VITALS: BP 103/61
[2017-10-08] MEDS: BENZTROPINE MESYLATE 2 MG TABLET PO SCH ×2 (08:11→16:41)
[2017-10-08] MEDS: SERTRALINE HCL 50 MG TABLET PO SCH (08:11)
[2017-10-08] MEDS: HALOPERIDOL 10 MG TABLET PO SCH ×2 (08:11→16:41)
[2017-10-08 08:17] VITALS: BP 105/60
[2017-10-08 16:07] VITALS: BP 100/70
[2017-10-09 06:27] VITALS: BP 100/61
[2017-10-09] MEDS: BENZTROPINE MESYLATE 2 MG TABLET PO SCH ×2 (08:06→16:32)
[2017-10-09] MEDS: HALOPERIDOL 10 MG TABLET PO SCH ×2 (08:06→16:32)
[2017-10-09] MEDS: SERTRALINE HCL 50 MG TABLET PO SCH (08:06)
[2017-10-09 08:30] VITALS: BP 101/62
[2017-10-09 16:06] VITALS: BP 102/60
[2017-10-10 00:42] VITALS: BP 101/60
[2017-10-10] MEDS: SERTRALINE HCL 50 MG TABLET PO SCH (08:05)
[2017-10-10] MEDS: BENZTROPINE MESYLATE 2 MG TABLET PO SCH ×2 (08:05→16:32)
[2017-10-10] MEDS: HALOPERIDOL 10 MG TABLET PO SCH ×2 (08:05→16:32)
[2017-10-10 08:21] VITALS: BP 103/60
[2017-10-10 16:09] VITALS: BP 112/62
[2017-10-11 02:06] VITALS: BP 104/62
[2017-10-11] MEDS: BENZTROPINE MESYLATE 2 MG TABLET PO SCH ×2 (08:06→16:35)
[2017-10-11] MEDS: SERTRALINE HCL 50 MG TABLET PO SCH (08:06)
[2017-10-11] MEDS: HALOPERIDOL 10 MG TABLET PO SCH ×2 (08:06→16:35)
[2017-10-11 08:39] VITALS: BP 107/74
[2017-10-11 16:13] VITALS: BP 103/60
[2017-10-12 02:19] VITALS: BP 102/61
[2017-10-12] MEDS: HALOPERIDOL 10 MG TABLET PO SCH ×2 (08:09→16:44)
[2017-10-12] MEDS: SERTRALINE HCL 50 MG TABLET PO SCH (08:09)
[2017-10-12] MEDS: BENZTROPINE MESYLATE 2 MG TABLET PO SCH ×2 (08:09→16:44)
[2017-10-12 09:26] VITALS: BP 95/67
[2017-10-12 16:12] VITALS: BP 105/65
[2017-10-13 00:43] VITALS: BP 107/63
[2017-10-13 08:23] VITALS: BP 108/60
[2017-10-13] MEDS: HALOPERIDOL 10 MG TABLET PO SCH ×2 (09:05→16:18)
[2017-10-13] MEDS: BENZTROPINE MESYLATE 2 MG TABLET PO SCH ×2 (09:05→16:18)
[2017-10-13] MEDS: SERTRALINE HCL 50 MG TABLET PO SCH (09:05)
[2017-10-13 16:10] VITALS: BP 103/64
[2017-10-14 00:15] VITALS: BP 100/61
[2017-10-14] MEDS: SERTRALINE HCL 50 MG TABLET PO SCH (08:08)
[2017-10-14] MEDS: HALOPERIDOL 10 MG TABLET PO SCH ×2 (08:08→16:13)
[2017-10-14] MEDS: BENZTROPINE MESYLATE 2 MG TABLET PO SCH ×2 (08:08→16:13)
[2017-10-14 08:33] VITALS: BP 101/60
[2017-10-15 07:18] VITALS: BP 100/60
[2017-10-15] MEDS: HALOPERIDOL 10 MG TABLET PO SCH ×2 (08:06→16:21)
[2017-10-15] MEDS: SERTRALINE HCL 50 MG TABLET PO SCH (08:06)
[2017-10-15] MEDS: BENZTROPINE MESYLATE 2 MG TABLET PO SCH ×2 (08:06→16:21)
[2017-10-15 08:39] VITALS: BP 100/62
[2017-10-15 16:25] VITALS: BP 109/63
[2017-10-16 06:33] VITALS: BP 122/64
[2017-10-16 08:00] VITALS: BP 107/66
[2017-10-16] MEDS: BENZTROPINE MESYLATE 2 MG TABLET PO SCH ×2 (08:04→16:38)
[2017-10-16] MEDS: SERTRALINE HCL 50 MG TABLET PO SCH (08:04)
[2017-10-16] MEDS: HALOPERIDOL 10 MG TABLET PO SCH ×2 (08:04→16:38)
[2017-10-16 16:27] VITALS: BP 100/60
[2017-10-17 00:05] VITALS: BP 100/61
[2017-10-17] MEDS: HALOPERIDOL 10 MG TABLET PO SCH ×2 (08:19→16:36)
[2017-10-17] MEDS: BENZTROPINE MESYLATE 2 MG TABLET PO SCH ×2 (08:19→16:36)
[2017-10-17] MEDS: SERTRALINE HCL 50 MG TABLET PO SCH (08:19)
[2017-10-17 08:27] VITALS: BP 132/60
[2017-10-17 16:10] VITALS: BP 105/60
[2017-10-18 01:18] VITALS: BP_SYST 101; BP_SYST 108; BP_DIAS 58; BP_DIAS 70
[2017-10-18 08:10] VITALS: BP 100/60
[2017-10-18] MEDS: BENZTROPINE MESYLATE 2 MG TABLET PO SCH ×2 (08:14→16:33)
[2017-10-18] MEDS: HALOPERIDOL 10 MG TABLET PO SCH ×2 (08:15→16:33)
[2017-10-18] MEDS: SERTRALINE HCL 50 MG TABLET PO SCH (08:15)
[2017-10-18] MEDS: HALOPERIDOL DECANOATE 100 MG/ML VIAL IM SCH (10:00)
[2017-10-18 16:21] VITALS: BP 115/60
[2017-10-19 00:04] VITALS: BP 115/62
[2017-10-19] MEDS: BENZTROPINE MESYLATE 2 MG TABLET PO SCH ×2 (08:06→16:33)
[2017-10-19] MEDS: HALOPERIDOL 10 MG TABLET PO SCH ×2 (08:06→16:33)
[2017-10-19] MEDS: SERTRALINE HCL 50 MG TABLET PO SCH (08:06)
[2017-10-19 08:32] VITALS: BP 106/68
[2017-10-19] MEDS ORDERED: TUBERCULIN, PURIFIED PROTEIN DERIVATIVE 5 TU/0.1 ML SYG ID ONE (10:45)
[2017-10-19 16:14] VITALS: BP 107/72
[2017-10-20 07:15] VITALS: BP 100/62
[2017-10-20] MEDS: BENZTROPINE MESYLATE 2 MG TABLET PO SCH ×2 (08:08→16:36)
[2017-10-20] MEDS: SERTRALINE HCL 50 MG TABLET PO SCH (08:08)
[2017-10-20] MEDS: HALOPERIDOL 10 MG TABLET PO SCH ×2 (08:08→16:36)
[2017-10-20 08:31] VITALS: BP 100/60
[2017-10-20 16:09] VITALS: BP 101/61
[2017-10-21 00:05] VITALS: BP 100/65
[2017-10-21 08:25] VITALS: BP 100/61
[2017-10-21] MEDS: HALOPERIDOL 10 MG TABLET PO SCH ×2 (08:48→16:37)
[2017-10-21] MEDS: SERTRALINE HCL 50 MG TABLET PO SCH (08:48)
[2017-10-21] MEDS: BENZTROPINE MESYLATE 2 MG TABLET PO SCH ×2 (08:48→16:37)
[2017-10-21 16:07] VITALS: BP 105/77
[2017-10-22 05:57] VITALS: BP 100/65
[2017-10-22 08:21] VITALS: BP 100/67
[2017-10-22] MEDS: HALOPERIDOL 10 MG TABLET PO SCH ×2 (08:49→16:39)
[2017-10-22] MEDS: BENZTROPINE MESYLATE 2 MG TABLET PO SCH ×2 (08:49→16:39)
[2017-10-22] MEDS: SERTRALINE HCL 50 MG TABLET PO SCH (08:49)
[2017-10-22 16:11] VITALS: BP 109/69
[2017-10-23 06:18] VITALS: BP 100/60
[2017-10-23] MEDS: ISONIAZID 300 MG TABLET PO SCH (08:02)
[2017-10-23] MEDS: PYRIDOXINE HCL 50 MG TABLET PO SCH (08:02)
[2017-10-23] MEDS: HALOPERIDOL 10 MG TABLET PO SCH ×2 (08:02→16:40)
[2017-10-23] MEDS: SERTRALINE HCL 50 MG TABLET PO SCH (08:03)
[2017-10-23] MEDS: BENZTROPINE MESYLATE 2 MG TABLET PO SCH ×2 (08:03→16:40)
[2017-10-23 08:28] VITALS: BP 108/63
[2017-10-23 16:15] VITALS: BP 112/75
[2017-10-24 05:35] VITALS: BP 100/66
[2017-10-24] MEDS: ISONIAZID 300 MG TABLET PO SCH (08:02)
[2017-10-24] MEDS: HALOPERIDOL 10 MG TABLET PO SCH ×2 (08:02→16:38)
[2017-10-24] MEDS: BENZTROPINE MESYLATE 2 MG TABLET PO SCH ×2 (08:02→16:37)
[2017-10-24] MEDS: PYRIDOXINE HCL 50 MG TABLET PO SCH (08:02)
[2017-10-24] MEDS: SERTRALINE HCL 50 MG TABLET PO SCH (08:03)
[2017-10-24 08:32] VITALS: BP 102/68
[2017-10-24 16:13] VITALS: BP 107/69
[2017-10-25 01:14] VITALS: BP 102/60
[2017-10-25] MEDS: SERTRALINE HCL 50 MG TABLET PO SCH (08:16)
[2017-10-25] MEDS: PYRIDOXINE HCL 50 MG TABLET PO SCH (08:16)
[2017-10-25] MEDS: ISONIAZID 300 MG TABLET PO SCH (08:16)
[2017-10-25] MEDS: BENZTROPINE MESYLATE 2 MG TABLET PO SCH ×2 (08:16→16:38)
[2017-10-25] MEDS: HALOPERIDOL 10 MG TABLET PO SCH ×2 (08:17→16:38)
[2017-10-25 09:59] VITALS: BP 100/62
[2017-10-25 16:08] VITALS: BP 102/63
[2017-10-26 02:08] VITALS: BP 101/64
[2017-10-26 07:59] VITALS: BP 109/67
[2017-10-26] MEDS: BENZTROPINE MESYLATE 2 MG TABLET PO SCH ×2 (08:29→16:36)
[2017-10-26] MEDS: SERTRALINE HCL 50 MG TABLET PO SCH (08:29)
[2017-10-26] MEDS: PYRIDOXINE HCL 50 MG TABLET PO SCH (08:29)
[2017-10-26] MEDS: HALOPERIDOL 10 MG TABLET PO SCH ×2 (08:29→16:35)
[2017-10-26] MEDS: ISONIAZID 300 MG TABLET PO SCH (08:29)
[2017-10-26 09:12] VITALS: BP 109/67
[2017-10-26 16:06] VITALS: BP 119/68
[2017-10-27 02:55] VITALS: BP 120/80
[2017-10-27] MEDS: ISONIAZID 300 MG TABLET PO SCH (08:02)
[2017-10-27] MEDS: HALOPERIDOL 10 MG TABLET PO SCH ×2 (08:02→16:29)
[2017-10-27] MEDS: SERTRALINE HCL 50 MG TABLET PO SCH (08:02)
[2017-10-27] MEDS: PYRIDOXINE HCL 50 MG TABLET PO SCH (08:02)
[2017-10-27] MEDS: BENZTROPINE MESYLATE 2 MG TABLET PO SCH ×2 (08:02→16:30)
[2017-10-27 08:42] VITALS: BP 102/60
[2017-10-27 16:07] VITALS: BP 111/69
[2017-10-28 01:23] VITALS: BP 101/62
[2017-10-28 08:28] VITALS: BP 119/60
[2017-10-28] MEDS: SERTRALINE HCL 50 MG TABLET PO SCH (08:57)
[2017-10-28] MEDS: PYRIDOXINE HCL 50 MG TABLET PO SCH (08:57)
[2017-10-28] MEDS: ISONIAZID 300 MG TABLET PO SCH (08:57)
[2017-10-28] MEDS: HALOPERIDOL 10 MG TABLET PO SCH ×2 (08:57→16:28)
[2017-10-28] MEDS: BENZTROPINE MESYLATE 2 MG TABLET PO SCH ×2 (08:57→16:28)
[2017-10-28 16:05] VITALS: BP 110/66
[2017-10-29 06:15] VITALS: BP 113/66
[2017-10-29 08:17] VITALS: BP 112/61
[2017-10-29] MEDS: ISONIAZID 300 MG TABLET PO SCH (08:22)
[2017-10-29] MEDS: SERTRALINE HCL 50 MG TABLET PO SCH (08:22)
[2017-10-29] MEDS: BENZTROPINE MESYLATE 2 MG TABLET PO SCH ×2 (08:22→16:17)
[2017-10-29] MEDS: HALOPERIDOL 10 MG TABLET PO SCH ×2 (08:22→16:17)
[2017-10-29] MEDS: PYRIDOXINE HCL 50 MG TABLET PO SCH (08:22)
[2017-10-29 16:05] VITALS: BP 109/72
[2017-10-30 01:42] VITALS: BP 102/63
[2017-10-30] MEDS: ISONIAZID 300 MG TABLET PO SCH (08:04)
[2017-10-30] MEDS: BENZTROPINE MESYLATE 2 MG TABLET PO SCH ×2 (08:04→16:41)
[2017-10-30] MEDS: HALOPERIDOL 10 MG TABLET PO SCH ×2 (08:04→16:42)
[2017-10-30] MEDS: SERTRALINE HCL 50 MG TABLET PO SCH (08:04)
[2017-10-30] MEDS: PYRIDOXINE HCL 50 MG TABLET PO SCH (08:04)
[2017-10-30 08:20] VITALS: BP 101/68
[2017-10-30 16:18] VITALS: BP 110/68
[2017-10-31 05:49] VITALS: BP 100/62
[2017-10-31 08:22] VITALS: BP 118/86
[2017-10-31] MEDS: BENZTROPINE MESYLATE 2 MG TABLET PO SCH ×2 (08:36→16:15)
[2017-10-31] MEDS: SERTRALINE HCL 50 MG TABLET PO SCH (08:36)
[2017-10-31] MEDS: PYRIDOXINE HCL 50 MG TABLET PO SCH (08:36)
[2017-10-31] MEDS: HALOPERIDOL 10 MG TABLET PO SCH ×2 (08:37→16:16)
[2017-10-31] MEDS: ISONIAZID 300 MG TABLET PO SCH (08:37)
[2017-10-31 16:12] VITALS: BP 100/61
[2017-11-01 00:17] VITALS: BP 102/60
[2017-11-01 08:14] VITALS: BP 99/63
[2017-11-01] MEDS: SERTRALINE HCL 50 MG TABLET PO SCH (08:14)
[2017-11-01] MEDS: ISONIAZID 300 MG TABLET PO SCH (08:14)
[2017-11-01] MEDS: PYRIDOXINE HCL 50 MG TABLET PO SCH (08:14)
[2017-11-01] MEDS: HALOPERIDOL 10 MG TABLET PO SCH ×2 (08:14→16:44)
[2017-11-01] MEDS: BENZTROPINE MESYLATE 2 MG TABLET PO SCH ×2 (08:14→16:44)
[2017-11-01 16:11] VITALS: BP 106/62
[2017-11-02 00:14] VITALS: BP 108/65
[2017-11-02] MEDS: HALOPERIDOL 10 MG TABLET PO SCH ×2 (08:19→16:38)
[2017-11-02] MEDS: ISONIAZID 300 MG TABLET PO SCH (08:19)
[2017-11-02] MEDS: BENZTROPINE MESYLATE 2 MG TABLET PO SCH ×2 (08:19→16:38)
[2017-11-02] MEDS: SERTRALINE HCL 50 MG TABLET PO SCH (08:19)
[2017-11-02] MEDS: PYRIDOXINE HCL 50 MG TABLET PO SCH (08:19)
[2017-11-02 08:39] VITALS: BP 102/63
[2017-11-02 16:11] VITALS: BP 101/61
[2017-11-03 08:04] VITALS: BP 98/60
[2017-11-03] MEDS: BENZTROPINE MESYLATE 2 MG TABLET PO SCH ×2 (08:21→16:49)
[2017-11-03] MEDS: HALOPERIDOL 10 MG TABLET PO SCH ×2 (08:21→16:49)
[2017-11-03] MEDS: PYRIDOXINE HCL 50 MG TABLET PO SCH (08:21)
[2017-11-03] MEDS: ISONIAZID 300 MG TABLET PO SCH (08:21)
[2017-11-03] MEDS: SERTRALINE HCL 50 MG TABLET PO SCH (08:21)
[2017-11-03 16:10] VITALS: BP 100/60
[2017-11-04 02:37] VITALS: BP 125/73
[2017-11-04] MEDS: HALOPERIDOL 10 MG TABLET PO SCH ×2 (08:10→16:47)
[2017-11-04] MEDS: BENZTROPINE MESYLATE 2 MG TABLET PO SCH ×2 (08:10→16:47)
[2017-11-04] MEDS: PYRIDOXINE HCL 50 MG TABLET PO SCH (08:10)
[2017-11-04] MEDS: SERTRALINE HCL 50 MG TABLET PO SCH (08:10)
[2017-11-04] MEDS: ISONIAZID 300 MG TABLET PO SCH (08:10)
[2017-11-04 08:14] VITALS: BP 102/71
[2017-11-04 16:09] VITALS: BP 111/65
[2017-11-05 04:45] VITALS: BP 100/71
[2017-11-05 08:13] VITALS: BP 100/60
[2017-11-05] MEDS: SERTRALINE HCL 50 MG TABLET PO SCH (08:38)
[2017-11-05] MEDS: BENZTROPINE MESYLATE 2 MG TABLET PO SCH ×2 (08:38→16:36)
[2017-11-05] MEDS: ISONIAZID 300 MG TABLET PO SCH (08:38)
[2017-11-05] MEDS: HALOPERIDOL 10 MG TABLET PO SCH ×2 (08:38→16:36)
[2017-11-05] MEDS: PYRIDOXINE HCL 50 MG TABLET PO SCH (08:38)
[2017-11-05 16:05] VITALS: BP 107/62
[2017-11-06 00:31] VITALS: BP 103/68
[2017-11-06 08:29] VITALS: BP 119/73
[2017-11-06] MEDS: BENZTROPINE MESYLATE 2 MG TABLET PO SCH ×2 (08:42→16:43)
[2017-11-06] MEDS: HALOPERIDOL 10 MG TABLET PO SCH ×2 (08:42→16:43)
[2017-11-06] MEDS: SERTRALINE HCL 50 MG TABLET PO SCH (08:42)
[2017-11-06] MEDS: PYRIDOXINE HCL 50 MG TABLET PO SCH (08:42)
[2017-11-06] MEDS: ISONIAZID 300 MG TABLET PO SCH (08:42)
[2017-11-06 16:30] VITALS: BP 100/61
[2017-11-07 06:29] VITALS: BP 104/61
[2017-11-07] MEDS: ISONIAZID 300 MG TABLET PO SCH (08:11)
[2017-11-07] MEDS: BENZTROPINE MESYLATE 2 MG TABLET PO SCH ×2 (08:11→16:47)
[2017-11-07] MEDS: SERTRALINE HCL 50 MG TABLET PO SCH (08:11)
[2017-11-07] MEDS: HALOPERIDOL 10 MG TABLET PO SCH ×2 (08:11→16:47)
[2017-11-07] MEDS: PYRIDOXINE HCL 50 MG TABLET PO SCH (08:11)
[2017-11-07 08:39] VITALS: BP 102/61
[2017-11-07 16:15] VITALS: BP 102/72
[2017-11-08 01:28] VITALS: BP 101/62
[2017-11-08] MEDS: BENZTROPINE MESYLATE 2 MG TABLET PO SCH ×2 (08:37→16:15)
[2017-11-08] MEDS: PYRIDOXINE HCL 50 MG TABLET PO SCH (08:37)
[2017-11-08] MEDS: SERTRALINE HCL 50 MG TABLET PO SCH (08:37)
[2017-11-08] MEDS: HALOPERIDOL 10 MG TABLET PO SCH ×2 (08:37→16:14)
[2017-11-08] MEDS: ISONIAZID 300 MG TABLET PO SCH (08:37)
[2017-11-08 09:05] VITALS: BP 106/79
[2017-11-08 16:28] VITALS: BP 104/73
[2017-11-09 02:16] VITALS: BP 103/62
[2017-11-09 08:17] VITALS: BP 105/63
[2017-11-09] MEDS: SERTRALINE HCL 50 MG TABLET PO SCH (09:09)
[2017-11-09] MEDS: BENZTROPINE MESYLATE 2 MG TABLET PO SCH ×2 (09:09→16:50)
[2017-11-09] MEDS: HALOPERIDOL 10 MG TABLET PO SCH ×2 (09:09→16:50)
[2017-11-09] MEDS: PYRIDOXINE HCL 50 MG TABLET PO SCH (09:10)
[2017-11-09] MEDS: ISONIAZID 300 MG TABLET PO SCH (09:10)
[2017-11-09 17:09] VITALS: BP 103/70
[2017-11-10 01:21] VITALS: BP 103/65
[2017-11-10] MEDS: HALOPERIDOL 10 MG TABLET PO SCH ×2 (08:05→16:37)
[2017-11-10] MEDS: PYRIDOXINE HCL 50 MG TABLET PO SCH (08:05)
[2017-11-10] MEDS: ISONIAZID 300 MG TABLET PO SCH (08:05)
[2017-11-10] MEDS: BENZTROPINE MESYLATE 2 MG TABLET PO SCH ×2 (08:05→16:37)
[2017-11-10] MEDS: SERTRALINE HCL 50 MG TABLET PO SCH (08:06)
[2017-11-10 08:16] VITALS: BP 102/60
[2017-11-10 16:30] VITALS: BP 108/63
[2017-11-11 03:58] VITALS: BP 101/77
[2017-11-11 07:13] LABS: BASOPHILS % (AUTO) 0.4 % (0.0-2.0); EOSINOPHILS % (AUTO) 1.7 % (1.0-6.0); HEMATOCRIT 45.7 % (41-53); HEMOGLOBIN 16.2 g/dL (13.5-17.5); LYMPHOCYTES # (AUTO) 3.3 K/uL (1.0-4.8); LYMPHOCYTES % (AUTO) 36.7 % (22.0-44.0); MEAN CORPUSCULAR HEMOGLOBIN 31.3 pg (26.0-34.0); MEAN CORPUSCULAR HGB CONC 35.3 G/dL (31.0-37.0); MEAN CORPUSCULAR VOLUME 89 fL (80-100); MONOCYTES # (AUTO) 0.5 K/uL (0.1-1.0); MONOCYTES % (AUTO) 5.5 % (2.0-9.0); NEUTROPHILS # (AUTO) 4.9 K/uL (1.8-7.7); NEUTROPHILS % (AUTO) 55.7 % (40.0-70.0); PLATELET COUNT (AUTO) 188 K/uL (150-450); RED BLOOD CELL COUNT(AUTO) 5.16 MIL/uL (4.50-5.90); RED CELL DISTRIBUTION WIDTH 13.2 % (11.5-14.5)
[2017-11-11 07:36] LABS: ALANINE AMINOTRANSFERASE 29 U/L (12-78); ALBUMIN 3.7 g/dL (3.4-5.0); ALKALINE PHOSPHATASE 75 U/L (46-116); ANION GAP 6 mmol/L (8-16); ASPARTATE AMINOTRANSFERASE 18 U/L (15-37); BILIRUBIN,TOTAL 0.5 mg/dL (0.1-1.0); CALCIUM, TOTAL 8.8 mg/dL (8.8-10.5); CARBON DIOXIDE 29 mmol/L (22-29); CHLORIDE 105 mmol/L (98-107); CREATININE 0.95 mg/dL (0.60-1.30); GLOMERULAR FILTR. RATE CALC > 60 mL/min (>60); GLUCOSE,RANDOM 81 mg/dL (70-110); POTASSIUM 4.1 mmol/L (3.5-5.1); SODIUM SERUM 140 mmol/L (136-145); TOTAL PROTEIN, SERUM 7.3 g/dL (6.4-8.2); UREA NITROGEN, BLOOD 19 mg/dL (7-18)
[2017-11-11] MEDS: SERTRALINE HCL 50 MG TABLET PO SCH (08:01)
[2017-11-11] MEDS: HALOPERIDOL 10 MG TABLET PO SCH ×2 (08:01→16:26)
[2017-11-11] MEDS: ISONIAZID 300 MG TABLET PO SCH (08:01)
[2017-11-11] MEDS: BENZTROPINE MESYLATE 2 MG TABLET PO SCH ×2 (08:01→16:26)
[2017-11-11] MEDS: PYRIDOXINE HCL 50 MG TABLET PO SCH (08:01)
[2017-11-11 08:29] VITALS: BP 109/66
[2017-11-11 16:09] VITALS: BP 100/71
[2017-11-12 02:30] VITALS: BP 100/66
[2017-11-12] MEDS: PYRIDOXINE HCL 50 MG TABLET PO SCH (08:08)
[2017-11-12] MEDS: HALOPERIDOL 10 MG TABLET PO SCH ×2 (08:08→16:00)
[2017-11-12] MEDS: SERTRALINE HCL 50 MG TABLET PO SCH (08:08)
[2017-11-12] MEDS: BENZTROPINE MESYLATE 2 MG TABLET PO SCH ×2 (08:08→16:00)
[2017-11-12] MEDS: ISONIAZID 300 MG TABLET PO SCH (08:08)
[2017-11-12 08:29] VITALS: BP 114/60
[2017-11-12 16:23] VITALS: BP 100/61
[2017-11-13 01:26] VITALS: BP 103/60
[2017-11-13] MEDS: PYRIDOXINE HCL 50 MG TABLET PO SCH (08:25)
[2017-11-13] MEDS: SERTRALINE HCL 50 MG TABLET PO SCH (08:25)
[2017-11-13] MEDS: BENZTROPINE MESYLATE 2 MG TABLET PO SCH ×2 (08:25→16:43)
[2017-11-13] MEDS: ISONIAZID 300 MG TABLET PO SCH (08:25)
[2017-11-13] MEDS: HALOPERIDOL 10 MG TABLET PO SCH ×2 (08:25→16:43)
[2017-11-13 08:44] VITALS: BP 100/60
[2017-11-13 16:24] VITALS: BP 106/62
[2017-11-14 01:33] VITALS: BP 100/61
[2017-11-14] MEDS: PYRIDOXINE HCL 50 MG TABLET PO SCH (08:36)
[2017-11-14] MEDS: ISONIAZID 300 MG TABLET PO SCH (08:36)
[2017-11-14] MEDS: SERTRALINE HCL 50 MG TABLET PO SCH (08:36)
[2017-11-14] MEDS: HALOPERIDOL 10 MG TABLET PO SCH ×2 (08:36→16:34)
[2017-11-14] MEDS: BENZTROPINE MESYLATE 2 MG TABLET PO SCH ×2 (08:37→16:34)
[2017-11-14 09:06] VITALS: BP 102/68
[2017-11-14 16:11] VITALS: BP 104/60
[2017-11-15 01:14] VITALS: BP 102/61
[2017-11-15 08:00] VITALS: BP 107/79
[2017-11-15] MEDS: ISONIAZID 300 MG TABLET PO SCH (08:21)
[2017-11-15] MEDS: PYRIDOXINE HCL 50 MG TABLET PO SCH (08:21)
[2017-11-15] MEDS: BENZTROPINE MESYLATE 2 MG TABLET PO SCH ×2 (08:21→17:34)
[2017-11-15] MEDS: HALOPERIDOL 10 MG TABLET PO SCH ×2 (08:21→18:43)
[2017-11-15] MEDS: SERTRALINE HCL 50 MG TABLET PO SCH (08:21)
[2017-11-15] MEDS: HALOPERIDOL DECANOATE 100 MG/ML VIAL IM SCH (09:37)
[2017-11-15 16:29] VITALS: BP 101/60
[2017-11-16 02:10] VITALS: BP 101/62
[2017-11-16 08:16] VITALS: BP 108/68
[2017-11-16] MEDS: BENZTROPINE MESYLATE 2 MG TABLET PO SCH ×2 (09:00→16:20)
[2017-11-16] MEDS: PYRIDOXINE HCL 50 MG TABLET PO SCH (09:00)
[2017-11-16] MEDS: ISONIAZID 300 MG TABLET PO SCH (09:00)
[2017-11-16] MEDS: HALOPERIDOL 10 MG TABLET PO SCH ×2 (09:00→16:20)
[2017-11-16] MEDS: SERTRALINE HCL 50 MG TABLET PO SCH (09:00)
[2017-11-16 16:12] VITALS: BP 102/64
[2017-11-17 08:33] VITALS: BP 100/60
[2017-11-17] MEDS: HALOPERIDOL 10 MG TABLET PO SCH ×2 (09:10→17:11)
[2017-11-17] MEDS: PYRIDOXINE HCL 50 MG TABLET PO SCH (09:11)
[2017-11-17] MEDS: BENZTROPINE MESYLATE 2 MG TABLET PO SCH ×2 (09:11→17:11)
[2017-11-17] MEDS: SERTRALINE HCL 50 MG TABLET PO SCH (09:11)
[2017-11-17] MEDS: ISONIAZID 300 MG TABLET PO SCH (09:12)
[2017-11-17 16:14] VITALS: BP 100/62
[2017-11-18 01:23] VITALS: BP 103/63
[2017-11-18 08:17] VITALS: BP 100/62
[2017-11-18] MEDS: SERTRALINE HCL 50 MG TABLET PO SCH (08:40)
[2017-11-18] MEDS: ISONIAZID 300 MG TABLET PO SCH (08:40)
[2017-11-18] MEDS: BENZTROPINE MESYLATE 2 MG TABLET PO SCH ×2 (08:40→16:24)
[2017-11-18] MEDS: PYRIDOXINE HCL 50 MG TABLET PO SCH (08:40)
[2017-11-18] MEDS: HALOPERIDOL 10 MG TABLET PO SCH ×2 (08:40→16:24)
[2017-11-18 16:05] VITALS: BP 105/68
[2017-11-19 00:36] VITALS: BP 101/61
[2017-11-19 08:14] VITALS: BP 102/70
[2017-11-19] MEDS: BENZTROPINE MESYLATE 2 MG TABLET PO SCH ×2 (08:22→16:39)
[2017-11-19] MEDS: ISONIAZID 300 MG TABLET PO SCH (08:22)
[2017-11-19] MEDS: SERTRALINE HCL 50 MG TABLET PO SCH (08:22)
[2017-11-19] MEDS: PYRIDOXINE HCL 50 MG TABLET PO SCH (08:23)
[2017-11-19] MEDS: HALOPERIDOL 10 MG TABLET PO SCH ×2 (08:23→16:39)
[2017-11-19 16:04] VITALS: BP 105/74
[2017-11-20 00:52] VITALS: BP 100/61
[2017-11-20] MEDS: HALOPERIDOL 10 MG TABLET PO SCH ×2 (08:20→17:28)
[2017-11-20] MEDS: ISONIAZID 300 MG TABLET PO SCH (08:20)
[2017-11-20] MEDS: SERTRALINE HCL 50 MG TABLET PO SCH (08:20)
[2017-11-20] MEDS: BENZTROPINE MESYLATE 2 MG TABLET PO SCH ×2 (08:20→17:28)
[2017-11-20] MEDS: PYRIDOXINE HCL 50 MG TABLET PO SCH (08:20)
[2017-11-20 08:52] VITALS: BP 101/68
[2017-11-20 16:17] VITALS: BP 102/62
[2017-11-21 06:50] VITALS: BP_SYST 106; BP_SYST 139; BP_DIAS 60; BP_DIAS 66
[2017-11-21 08:10] VITALS: BP 117/60
[2017-11-21] MEDS: HALOPERIDOL 10 MG TABLET PO SCH ×2 (09:17→16:35)
[2017-11-21] MEDS: ISONIAZID 300 MG TABLET PO SCH (09:17)
[2017-11-21] MEDS: BENZTROPINE MESYLATE 2 MG TABLET PO SCH ×2 (09:17→16:35)
[2017-11-21] MEDS: PYRIDOXINE HCL 50 MG TABLET PO SCH (09:17)
[2017-11-21] MEDS: SERTRALINE HCL 50 MG TABLET PO SCH (09:17)
[2017-11-21 16:18] VITALS: BP 105/68
[2017-11-22 01:40] VITALS: BP 109/65
[2017-11-22 08:00] VITALS: BP 103/64
[2017-11-22] MEDS: PYRIDOXINE HCL 50 MG TABLET PO SCH (08:25)
[2017-11-22] MEDS: SERTRALINE HCL 50 MG TABLET PO SCH (08:25)
[2017-11-22] MEDS: BENZTROPINE MESYLATE 2 MG TABLET PO SCH ×2 (08:25→16:48)
[2017-11-22] MEDS: HALOPERIDOL 10 MG TABLET PO SCH ×2 (08:25→16:48)
[2017-11-22] MEDS: ISONIAZID 300 MG TABLET PO SCH (08:25)
[2017-11-22 16:11] VITALS: BP 103/62
[2017-11-23 06:41] VITALS: BP 102/65
[2017-11-23] MEDS: HALOPERIDOL 10 MG TABLET PO SCH ×2 (08:24→16:34)
[2017-11-23] MEDS: BENZTROPINE MESYLATE 2 MG TABLET PO SCH ×2 (08:24→16:34)
[2017-11-23] MEDS: ISONIAZID 300 MG TABLET PO SCH (08:24)
[2017-11-23] MEDS: PYRIDOXINE HCL 50 MG TABLET PO SCH (08:24)
[2017-11-23] MEDS: SERTRALINE HCL 50 MG TABLET PO SCH (08:25)
[2017-11-23 08:32] VITALS: BP 146/71
[2017-11-23 16:12] VITALS: BP 107/60
[2017-11-24 04:42] VITALS: BP 100/76
[2017-11-24] MEDS: HALOPERIDOL 10 MG TABLET PO SCH ×2 (08:00→16:36)
[2017-11-24] MEDS: ISONIAZID 300 MG TABLET PO SCH (08:00)
[2017-11-24] MEDS: SERTRALINE HCL 50 MG TABLET PO SCH (08:00)
[2017-11-24] MEDS: BENZTROPINE MESYLATE 2 MG TABLET PO SCH ×2 (08:00→16:36)
[2017-11-24] MEDS: PYRIDOXINE HCL 50 MG TABLET PO SCH (08:00)
[2017-11-24 08:51] VITALS: BP 100/67
[2017-11-24 16:05] VITALS: BP 110/66
[2017-11-25] MEDS: ISONIAZID 300 MG TABLET PO SCH (08:00)
[2017-11-25] MEDS: SERTRALINE HCL 50 MG TABLET PO SCH (08:00)
[2017-11-25] MEDS: BENZTROPINE MESYLATE 2 MG TABLET PO SCH ×2 (08:01→16:08)
[2017-11-25] MEDS: PYRIDOXINE HCL 50 MG TABLET PO SCH (08:01)
[2017-11-25] MEDS: HALOPERIDOL 10 MG TABLET PO SCH ×2 (08:01→16:08)
[2017-11-25 08:24] VITALS: BP 104/70
[2017-11-25 16:14] VITALS: BP 100/62
[2017-11-26 04:40] VITALS: BP 137/78
[2017-11-26] MEDS: PYRIDOXINE HCL 50 MG TABLET PO SCH (08:20)
[2017-11-26] MEDS: HALOPERIDOL 10 MG TABLET PO SCH ×2 (08:20→16:10)
[2017-11-26] MEDS: ISONIAZID 300 MG TABLET PO SCH (08:20)
[2017-11-26] MEDS: SERTRALINE HCL 50 MG TABLET PO SCH (08:20)
[2017-11-26] MEDS: BENZTROPINE MESYLATE 2 MG TABLET PO SCH ×2 (08:20→16:10)
[2017-11-26 08:35] VITALS: BP 101/65
[2017-11-26 16:10] VITALS: BP 103/63
[2017-11-27 01:51] VITALS: BP 104/67
[2017-11-27] MEDS: SERTRALINE HCL 50 MG TABLET PO SCH (08:12)
[2017-11-27] MEDS: PYRIDOXINE HCL 50 MG TABLET PO SCH (08:12)
[2017-11-27] MEDS: ISONIAZID 300 MG TABLET PO SCH (08:12)
[2017-11-27] MEDS: BENZTROPINE MESYLATE 2 MG TABLET PO SCH ×2 (08:12→16:33)
[2017-11-27] MEDS: HALOPERIDOL 10 MG TABLET PO SCH ×2 (08:12→16:33)
[2017-11-27 08:34] VITALS: BP 101/73
[2017-11-27 16:07] VITALS: BP 100/66
[2017-11-28 05:52] VITALS: BP 102/70
[2017-11-28] MEDS: SERTRALINE HCL 50 MG TABLET PO SCH (08:05)
[2017-11-28] MEDS: BENZTROPINE MESYLATE 2 MG TABLET PO SCH ×2 (08:05→16:25)
[2017-11-28] MEDS: HALOPERIDOL 10 MG TABLET PO SCH ×2 (08:05→16:25)
[2017-11-28] MEDS: PYRIDOXINE HCL 50 MG TABLET PO SCH (08:05)
[2017-11-28] MEDS: ISONIAZID 300 MG TABLET PO SCH (08:05)
[2017-11-28 08:29] VITALS: BP 124/69
[2017-11-28 16:18] VITALS: BP 107/70
[2017-11-29 02:34] VITALS: BP 106/60
[2017-11-29 08:11] VITALS: BP 101/68
[2017-11-29] MEDS: BENZTROPINE MESYLATE 2 MG TABLET PO SCH ×2 (08:12→16:36)
[2017-11-29] MEDS: SERTRALINE HCL 50 MG TABLET PO SCH (08:12)
[2017-11-29] MEDS: HALOPERIDOL 10 MG TABLET PO SCH ×2 (08:12→16:36)
[2017-11-29] MEDS: ISONIAZID 300 MG TABLET PO SCH (08:12)
[2017-11-29] MEDS: PYRIDOXINE HCL 50 MG TABLET PO SCH (08:12)
[2017-11-29 16:19] VITALS: BP 100/61
[2017-11-30 01:20] VITALS: BP 104/60
[2017-11-30] MEDS: PYRIDOXINE HCL 50 MG TABLET PO SCH (08:04)
[2017-11-30] MEDS: HALOPERIDOL 10 MG TABLET PO SCH ×2 (08:04→16:36)
[2017-11-30] MEDS: BENZTROPINE MESYLATE 2 MG TABLET PO SCH ×2 (08:04→16:36)
[2017-11-30] MEDS: ISONIAZID 300 MG TABLET PO SCH (08:04)
[2017-11-30] MEDS: SERTRALINE HCL 50 MG TABLET PO SCH (08:04)
[2017-11-30 08:14] VITALS: BP 105/62
[2017-11-30 16:06] VITALS: BP 115/83
[2017-12-01 02:47] VITALS: BP 103/62
[2017-12-01 08:20] VITALS: BP 100/60
[2017-12-01] MEDS: HALOPERIDOL 10 MG TABLET PO SCH ×2 (08:22→16:31)
[2017-12-01] MEDS: PYRIDOXINE HCL 50 MG TABLET PO SCH (08:22)
[2017-12-01] MEDS: ISONIAZID 300 MG TABLET PO SCH (08:22)
[2017-12-01] MEDS: SERTRALINE HCL 50 MG TABLET PO SCH (08:22)
[2017-12-01] MEDS: BENZTROPINE MESYLATE 2 MG TABLET PO SCH ×2 (08:22→16:31)
[2017-12-01 16:06] VITALS: BP 104/62
[2017-12-02 01:13] VITALS: BP 104/63
[2017-12-02 08:19] VITALS: BP 101/67
[2017-12-02] MEDS: SERTRALINE HCL 50 MG TABLET PO SCH (08:27)
[2017-12-02] MEDS: HALOPERIDOL 10 MG TABLET PO SCH ×2 (08:27→16:36)
[2017-12-02] MEDS: PYRIDOXINE HCL 50 MG TABLET PO SCH (08:27)
[2017-12-02] MEDS: BENZTROPINE MESYLATE 2 MG TABLET PO SCH ×2 (08:27→16:36)
[2017-12-02] MEDS: ISONIAZID 300 MG TABLET PO SCH (08:27)
[2017-12-02 16:05] VITALS: BP 101/70
[2017-12-03 01:39] VITALS: BP 98/60
[2017-12-03] MEDS: SERTRALINE HCL 50 MG TABLET PO SCH (08:13)
[2017-12-03] MEDS: ISONIAZID 300 MG TABLET PO SCH (08:13)
[2017-12-03] MEDS: BENZTROPINE MESYLATE 2 MG TABLET PO SCH ×2 (08:13→16:34)
[2017-12-03] MEDS: PYRIDOXINE HCL 50 MG TABLET PO SCH (08:13)
[2017-12-03] MEDS: HALOPERIDOL 10 MG TABLET PO SCH ×2 (08:13→16:34)
[2017-12-03 08:28] VITALS: BP 100/68
[2017-12-03 16:00] VITALS: BP 102/62
[2017-12-04 05:41] VITALS: BP 108/73
[2017-12-04] MEDS: ISONIAZID 300 MG TABLET PO SCH (08:01)
[2017-12-04] MEDS: HALOPERIDOL 10 MG TABLET PO SCH ×2 (08:01→16:33)
[2017-12-04] MEDS: BENZTROPINE MESYLATE 2 MG TABLET PO SCH ×2 (08:01→16:33)
[2017-12-04] MEDS: PYRIDOXINE HCL 50 MG TABLET PO SCH (08:01)
[2017-12-04] MEDS: SERTRALINE HCL 50 MG TABLET PO SCH (08:01)
[2017-12-04 08:12] VITALS: BP 107/74
[2017-12-04 16:08] VITALS: BP 101/60
[2017-12-05 02:51] VITALS: BP 104/64
[2017-12-05 08:31] VITALS: BP 100/64
[2017-12-05] MEDS: BENZTROPINE MESYLATE 2 MG TABLET PO SCH ×2 (08:35→16:39)
[2017-12-05] MEDS: SERTRALINE HCL 50 MG TABLET PO SCH (08:36)
[2017-12-05] MEDS: HALOPERIDOL 10 MG TABLET PO SCH ×2 (08:36→16:39)
[2017-12-05] MEDS: PYRIDOXINE HCL 50 MG TABLET PO SCH (08:36)
[2017-12-05] MEDS: ISONIAZID 300 MG TABLET PO SCH (08:36)
[2017-12-05 16:06] VITALS: BP 109/69
[2017-12-06 06:01] VITALS: BP 139/80
[2017-12-06] MEDS: BENZTROPINE MESYLATE 2 MG TABLET PO SCH ×2 (08:13→16:41)
[2017-12-06] MEDS: SERTRALINE HCL 50 MG TABLET PO SCH (08:13)
[2017-12-06] MEDS: HALOPERIDOL 10 MG TABLET PO SCH ×2 (08:13→16:41)
[2017-12-06] MEDS: PYRIDOXINE HCL 50 MG TABLET PO SCH (08:13)
[2017-12-06] MEDS: ISONIAZID 300 MG TABLET PO SCH (08:13)
[2017-12-06 08:24] VITALS: BP 123/79
[2017-12-06 16:21] VITALS: BP 106/63
[2017-12-07 05:21] VITALS: BP 106/73
[2017-12-07 08:00] VITALS: BP 105/66
[2017-12-07] MEDS: SERTRALINE HCL 50 MG TABLET PO SCH (08:06)
[2017-12-07] MEDS: HALOPERIDOL 10 MG TABLET PO SCH ×2 (08:06→16:33)
[2017-12-07] MEDS: ISONIAZID 300 MG TABLET PO SCH (08:06)
[2017-12-07] MEDS: BENZTROPINE MESYLATE 2 MG TABLET PO SCH ×2 (08:06→16:33)
[2017-12-07] MEDS: PYRIDOXINE HCL 50 MG TABLET PO SCH (08:06)
[2017-12-07 16:14] VITALS: BP 101/60
[2017-12-08 04:56] VITALS: BP 101/71
[2017-12-08] MEDS: SERTRALINE HCL 50 MG TABLET PO SCH (08:12)
[2017-12-08] MEDS: ISONIAZID 300 MG TABLET PO SCH (08:12)
[2017-12-08] MEDS: BENZTROPINE MESYLATE 2 MG TABLET PO SCH ×2 (08:12→16:39)
[2017-12-08] MEDS: PYRIDOXINE HCL 50 MG TABLET PO SCH (08:12)
[2017-12-08] MEDS: HALOPERIDOL 10 MG TABLET PO SCH ×2 (08:12→16:39)
[2017-12-08 08:37] VITALS: BP 105/60
[2017-12-08 16:46] VITALS: BP 108/78
[2017-12-09 03:30] VITALS: BP 104/70
[2017-12-09] MEDS: ISONIAZID 300 MG TABLET PO SCH (08:18)
[2017-12-09] MEDS: PYRIDOXINE HCL 50 MG TABLET PO SCH (08:18)
[2017-12-09] MEDS: SERTRALINE HCL 50 MG TABLET PO SCH (08:18)
[2017-12-09] MEDS: BENZTROPINE MESYLATE 2 MG TABLET PO SCH ×2 (08:18→17:05)
[2017-12-09] MEDS: HALOPERIDOL 10 MG TABLET PO SCH ×2 (08:18→17:05)
[2017-12-09 08:38] VITALS: BP 117/60
[2017-12-09 16:14] VITALS: BP 100/65
[2017-12-10 06:18] VITALS: BP 106/76
[2017-12-10 08:31] VITALS: BP 100/60
[2017-12-10] MEDS: BENZTROPINE MESYLATE 2 MG TABLET PO SCH ×2 (08:54→16:03)
[2017-12-10] MEDS: PYRIDOXINE HCL 50 MG TABLET PO SCH (08:54)
[2017-12-10] MEDS: SERTRALINE HCL 50 MG TABLET PO SCH (08:54)
[2017-12-10] MEDS: ISONIAZID 300 MG TABLET PO SCH (08:54)
[2017-12-10] MEDS: HALOPERIDOL 10 MG TABLET PO SCH ×2 (08:54→16:03)
[2017-12-10 16:07] VITALS: BP 100/63
[2017-12-11 01:20] VITALS: BP 102/64
[2017-12-11 09:32] VITALS: BP 106/67
[2017-12-11] MEDS: ISONIAZID 300 MG TABLET PO SCH (09:38)
[2017-12-11] MEDS: BENZTROPINE MESYLATE 2 MG TABLET PO SCH ×2 (09:38→16:29)
[2017-12-11] MEDS: PYRIDOXINE HCL 50 MG TABLET PO SCH (09:38)
[2017-12-11] MEDS: SERTRALINE HCL 50 MG TABLET PO SCH (09:38)
[2017-12-11] MEDS: HALOPERIDOL 10 MG TABLET PO SCH ×2 (09:39→16:29)
[2017-12-11 20:15] VITALS: BP 108/66
[2017-12-12 07:03] VITALS: BP 108/64
[2017-12-12 08:55] VITALS: BP 126/79
[2017-12-12] MEDS: SERTRALINE HCL 50 MG TABLET PO SCH (09:15)
[2017-12-12] MEDS: PYRIDOXINE HCL 50 MG TABLET PO SCH (09:16)
[2017-12-12] MEDS: HALOPERIDOL 10 MG TABLET PO SCH ×2 (09:16→16:30)
[2017-12-12] MEDS: BENZTROPINE MESYLATE 2 MG TABLET PO SCH ×2 (09:16→16:31)
[2017-12-12] MEDS: ISONIAZID 300 MG TABLET PO SCH (09:16)
[2017-12-12 16:11] VITALS: BP 106/62
[2017-12-13 05:17] VITALS: BP 114/64
[2017-12-13] MEDS: HALOPERIDOL 10 MG TABLET PO SCH ×2 (08:05→16:30)
[2017-12-13] MEDS: BENZTROPINE MESYLATE 2 MG TABLET PO SCH ×2 (08:05→16:30)
[2017-12-13] MEDS: SERTRALINE HCL 50 MG TABLET PO SCH (08:05)
[2017-12-13] MEDS: ISONIAZID 300 MG TABLET PO SCH (08:05)
[2017-12-13] MEDS: PYRIDOXINE HCL 50 MG TABLET PO SCH (08:05)
[2017-12-13 08:41] VITALS: BP 101/80
[2017-12-13] MEDS: HALOPERIDOL DECANOATE 100 MG/ML VIAL IM SCH (09:27)
[2017-12-13 16:10] VITALS: BP 103/72
[2017-12-14 06:24] VITALS: BP 113/63
[2017-12-14] MEDS: ISONIAZID 300 MG TABLET PO SCH (08:01)
[2017-12-14] MEDS: HALOPERIDOL 10 MG TABLET PO SCH ×2 (08:01→16:39)
[2017-12-14] MEDS: BENZTROPINE MESYLATE 2 MG TABLET PO SCH ×2 (08:01→16:39)
[2017-12-14] MEDS: PYRIDOXINE HCL 50 MG TABLET PO SCH (08:01)
[2017-12-14] MEDS: SERTRALINE HCL 50 MG TABLET PO SCH (08:01)
[2017-12-14 08:19] VITALS: BP 101/65
[2017-12-14 17:30] VITALS: BP 102/63
[2017-12-15 01:42] VITALS: BP 108/62
[2017-12-15] MEDS: ISONIAZID 300 MG TABLET PO SCH (08:08)
[2017-12-15] MEDS: BENZTROPINE MESYLATE 2 MG TABLET PO SCH ×2 (08:08→16:37)
[2017-12-15] MEDS: HALOPERIDOL 10 MG TABLET PO SCH ×2 (08:08→16:37)
[2017-12-15] MEDS: SERTRALINE HCL 50 MG TABLET PO SCH (08:08)
[2017-12-15] MEDS: PYRIDOXINE HCL 50 MG TABLET PO SCH (08:08)
[2017-12-15 08:37] VITALS: BP 102/75
[2017-12-15 16:17] VITALS: BP 110/76
[2017-12-16 01:34] VITALS: BP 112/78
[2017-12-16] MEDS: HALOPERIDOL 10 MG TABLET PO SCH ×2 (08:10→16:36)
[2017-12-16] MEDS: ISONIAZID 300 MG TABLET PO SCH (08:10)
[2017-12-16] MEDS: BENZTROPINE MESYLATE 2 MG TABLET PO SCH ×2 (08:10→16:36)
[2017-12-16] MEDS: PYRIDOXINE HCL 50 MG TABLET PO SCH (08:10)
[2017-12-16] MEDS: SERTRALINE HCL 50 MG TABLET PO SCH (08:10)
[2017-12-16 08:34] VITALS: BP 102/68
[2017-12-16 16:29] VITALS: BP 109/67
[2017-12-17 00:10] VITALS: BP 100/61
[2017-12-17] MEDS: HALOPERIDOL 10 MG TABLET PO SCH ×2 (08:13→16:14)
[2017-12-17] MEDS: ISONIAZID 300 MG TABLET PO SCH (08:13)
[2017-12-17] MEDS: BENZTROPINE MESYLATE 2 MG TABLET PO SCH ×2 (08:13→16:14)
[2017-12-17] MEDS: SERTRALINE HCL 50 MG TABLET PO SCH (08:13)
[2017-12-17] MEDS: PYRIDOXINE HCL 50 MG TABLET PO SCH (08:13)
[2017-12-17 08:33] VITALS: BP 128/61
[2017-12-17 16:08] VITALS: BP 103/71
[2017-12-18 07:01] VITALS: BP 100/76
[2017-12-18 08:20] VITALS: BP 100/64
[2017-12-18] MEDS: SERTRALINE HCL 50 MG TABLET PO SCH (08:24)
[2017-12-18] MEDS: ISONIAZID 300 MG TABLET PO SCH (08:24)
[2017-12-18] MEDS: HALOPERIDOL 10 MG TABLET PO SCH ×2 (08:24→16:43)
[2017-12-18] MEDS: PYRIDOXINE HCL 50 MG TABLET PO SCH (08:24)
[2017-12-18] MEDS: BENZTROPINE MESYLATE 2 MG TABLET PO SCH ×2 (08:24→16:43)
[2017-12-18 16:00] VITALS: BP 104/64
[2017-12-19 02:22] VITALS: BP 110/68
[2017-12-19] MEDS: BENZTROPINE MESYLATE 2 MG TABLET PO SCH ×2 (08:03→16:35)
[2017-12-19] MEDS: ISONIAZID 300 MG TABLET PO SCH (08:03)
[2017-12-19] MEDS: SERTRALINE HCL 50 MG TABLET PO SCH (08:03)
[2017-12-19] MEDS: HALOPERIDOL 10 MG TABLET PO SCH ×2 (08:03→16:35)
[2017-12-19] MEDS: PYRIDOXINE HCL 50 MG TABLET PO SCH (08:03)
[2017-12-19 09:16] VITALS: BP 113/62
[2017-12-19 16:26] VITALS: BP 118/79
[2017-12-20 00:55] VITALS: BP 101/63
[2017-12-20 08:24] VITALS: BP 107/66
[2017-12-20] MEDS: BENZTROPINE MESYLATE 2 MG TABLET PO SCH ×2 (08:33→16:41)
[2017-12-20] MEDS: PYRIDOXINE HCL 50 MG TABLET PO SCH (08:33)
[2017-12-20] MEDS: HALOPERIDOL 10 MG TABLET PO SCH ×2 (08:33→16:41)
[2017-12-20] MEDS: SERTRALINE HCL 50 MG TABLET PO SCH (08:33)
[2017-12-20] MEDS: ISONIAZID 300 MG TABLET PO SCH (08:33)
[2017-12-20 16:57] VITALS: BP 108/74
[2017-12-21 00:02] VITALS: BP 106/61
[2017-12-21] MEDS: ISONIAZID 300 MG TABLET PO SCH (08:12)
[2017-12-21] MEDS: HALOPERIDOL 10 MG TABLET PO SCH ×2 (08:12→16:36)
[2017-12-21] MEDS: BENZTROPINE MESYLATE 2 MG TABLET PO SCH ×2 (08:12→16:36)
[2017-12-21] MEDS: SERTRALINE HCL 50 MG TABLET PO SCH (08:12)
[2017-12-21] MEDS: PYRIDOXINE HCL 50 MG TABLET PO SCH (08:12)
[2017-12-21 08:36] VITALS: BP 100/61
[2017-12-21 16:11] VITALS: BP 105/66
[2017-12-22 04:56] VITALS: BP 110/65
[2017-12-22 08:25] VITALS: BP 127/60
[2017-12-22] MEDS: ISONIAZID 300 MG TABLET PO SCH (08:39)
[2017-12-22] MEDS: HALOPERIDOL 10 MG TABLET PO SCH ×2 (08:39→16:31)
[2017-12-22] MEDS: BENZTROPINE MESYLATE 2 MG TABLET PO SCH ×2 (08:39→16:31)
[2017-12-22] MEDS: PYRIDOXINE HCL 50 MG TABLET PO SCH (08:39)
[2017-12-22] MEDS: SERTRALINE HCL 50 MG TABLET PO SCH (08:39)
[2017-12-22 16:14] VITALS: BP 100/58
[2017-12-23 06:30] VITALS: BP 102/60
[2017-12-23] MEDS: PYRIDOXINE HCL 50 MG TABLET PO SCH (08:09)
[2017-12-23] MEDS: HALOPERIDOL 10 MG TABLET PO SCH ×2 (08:09→16:06)
[2017-12-23] MEDS: ISONIAZID 300 MG TABLET PO SCH (08:09)
[2017-12-23] MEDS: BENZTROPINE MESYLATE 2 MG TABLET PO SCH ×2 (08:09→16:06)
[2017-12-23] MEDS: SERTRALINE HCL 50 MG TABLET PO SCH (08:09)
[2017-12-23 08:17] VITALS: BP 123/60
[2017-12-23 16:01] VITALS: BP 100/62
[2017-12-24 06:03] VITALS: BP 120/86
[2017-12-24] MEDS: ISONIAZID 300 MG TABLET PO SCH (08:09)
[2017-12-24] MEDS: HALOPERIDOL 10 MG TABLET PO SCH ×2 (08:09→16:34)
[2017-12-24] MEDS: PYRIDOXINE HCL 50 MG TABLET PO SCH (08:09)
[2017-12-24] MEDS: SERTRALINE HCL 50 MG TABLET PO SCH (08:09)
[2017-12-24] MEDS: BENZTROPINE MESYLATE 2 MG TABLET PO SCH ×2 (08:09→16:34)
[2017-12-24 08:16] VITALS: BP 100/68
[2017-12-24 16:15] VITALS: BP 103/73
[2017-12-25 03:59] VITALS: BP 110/71
[2017-12-25] MEDS: BENZTROPINE MESYLATE 2 MG TABLET PO SCH ×2 (08:04→16:29)
[2017-12-25] MEDS: SERTRALINE HCL 50 MG TABLET PO SCH (08:04)
[2017-12-25] MEDS: HALOPERIDOL 10 MG TABLET PO SCH ×2 (08:04→16:29)
[2017-12-25 08:26] VITALS: BP 100/67
[2017-12-25] MEDS: ISONIAZID 300 MG TABLET PO SCH (11:53)
[2017-12-25] MEDS: PYRIDOXINE HCL 50 MG TABLET PO SCH (11:54)
[2017-12-25 16:10] VITALS: BP 108/67
[2017-12-26 00:15] VITALS: BP 110/68
[2017-12-26] MEDS: BENZTROPINE MESYLATE 2 MG TABLET PO SCH ×2 (08:01→16:39)
[2017-12-26] MEDS: SERTRALINE HCL 50 MG TABLET PO SCH (08:01)
[2017-12-26] MEDS: PYRIDOXINE HCL 50 MG TABLET PO SCH (08:01)
[2017-12-26] MEDS: HALOPERIDOL 10 MG TABLET PO SCH ×2 (08:01→16:39)
[2017-12-26] MEDS: ISONIAZID 300 MG TABLET PO SCH (08:01)
[2017-12-26 08:48] VITALS: BP 113/68
[2017-12-26 16:11] VITALS: BP 102/62
[2017-12-27 05:50] VITALS: BP 127/60
[2017-12-27] MEDS: PYRIDOXINE HCL 50 MG TABLET PO SCH (08:15)
[2017-12-27] MEDS: SERTRALINE HCL 50 MG TABLET PO SCH (08:15)
[2017-12-27] MEDS: ISONIAZID 300 MG TABLET PO SCH (08:15)
[2017-12-27] MEDS: HALOPERIDOL 10 MG TABLET PO SCH ×2 (08:15→16:38)
[2017-12-27] MEDS: BENZTROPINE MESYLATE 2 MG TABLET PO SCH ×2 (08:15→16:38)
[2017-12-27 08:41] VITALS: BP 100/61
[2017-12-27 16:10] VITALS: BP 102/69
[2017-12-28 05:37] VITALS: BP 109/72
[2017-12-28] MEDS: PYRIDOXINE HCL 50 MG TABLET PO SCH (08:19)
[2017-12-28] MEDS: SERTRALINE HCL 50 MG TABLET PO SCH (08:19)
[2017-12-28] MEDS: ISONIAZID 300 MG TABLET PO SCH (08:19)
[2017-12-28] MEDS: HALOPERIDOL 10 MG TABLET PO SCH ×2 (08:19→16:41)
[2017-12-28] MEDS: BENZTROPINE MESYLATE 2 MG TABLET PO SCH ×2 (08:19→16:41)
[2017-12-28 08:50] VITALS: BP 110/74
[2017-12-28 16:37] VITALS: BP 118/81
[2017-12-29 06:34] VITALS: BP 100/65
[2017-12-29] MEDS: ISONIAZID 300 MG TABLET PO SCH (08:21)
[2017-12-29] MEDS: BENZTROPINE MESYLATE 2 MG TABLET PO SCH ×2 (08:21→16:47)
[2017-12-29] MEDS: SERTRALINE HCL 50 MG TABLET PO SCH (08:21)
[2017-12-29] MEDS: PYRIDOXINE HCL 50 MG TABLET PO SCH (08:21)
[2017-12-29] MEDS: HALOPERIDOL 10 MG TABLET PO SCH ×2 (08:26→16:48)
[2017-12-29 08:55] VITALS: BP 100/69
[2017-12-29 17:41] VITALS: BP 125/68
[2017-12-30 06:14] VITALS: BP 125/72
[2017-12-30 08:42] VITALS: BP 100/60
[2017-12-30] MEDS: PYRIDOXINE HCL 50 MG TABLET PO SCH (10:13)
[2017-12-30] MEDS: SERTRALINE HCL 50 MG TABLET PO SCH (10:13)
[2017-12-30] MEDS: BENZTROPINE MESYLATE 2 MG TABLET PO SCH ×2 (10:13→16:30)
[2017-12-30] MEDS: HALOPERIDOL 10 MG TABLET PO SCH ×2 (10:13→16:30)
[2017-12-30] MEDS: ISONIAZID 300 MG TABLET PO SCH (10:13)
[2017-12-30 16:12] VITALS: BP 107/65
[2017-12-31 06:39] VITALS: BP 102/69
[2017-12-31] MEDS: HALOPERIDOL 10 MG TABLET PO SCH ×2 (08:10→16:39)
[2017-12-31] MEDS: ISONIAZID 300 MG TABLET PO SCH (08:10)
[2017-12-31] MEDS: PYRIDOXINE HCL 50 MG TABLET PO SCH (08:10)
[2017-12-31] MEDS: BENZTROPINE MESYLATE 2 MG TABLET PO SCH ×2 (08:10→16:39)
[2017-12-31] MEDS: SERTRALINE HCL 50 MG TABLET PO SCH (08:10)
[2017-12-31 11:13] VITALS: BP 107/66
[2017-12-31 16:11] VITALS: BP 103/68
[2018-01-01 05:34] VITALS: BP 11/68
[2018-01-01 08:00] VITALS: BP 104/66
[2018-01-01] MEDS: PYRIDOXINE HCL 50 MG TABLET PO SCH (08:23)
[2018-01-01] MEDS: BENZTROPINE MESYLATE 2 MG TABLET PO SCH ×2 (08:23→16:36)
[2018-01-01] MEDS: ISONIAZID 300 MG TABLET PO SCH (08:23)
[2018-01-01] MEDS: SERTRALINE HCL 50 MG TABLET PO SCH (08:23)
[2018-01-01] MEDS: HALOPERIDOL 10 MG TABLET PO SCH ×2 (08:23→16:36)
[2018-01-01 16:42] VITALS: BP 107/72
[2018-01-02 05:46] VITALS: BP 108/56
[2018-01-02 08:04] VITALS: BP 109/72
[2018-01-02] MEDS: SERTRALINE HCL 50 MG TABLET PO SCH (08:04)
[2018-01-02] MEDS: PYRIDOXINE HCL 50 MG TABLET PO SCH (08:04)
[2018-01-02] MEDS: ISONIAZID 300 MG TABLET PO SCH (08:04)
[2018-01-02] MEDS: HALOPERIDOL 10 MG TABLET PO SCH ×2 (08:04→17:03)
[2018-01-02] MEDS: BENZTROPINE MESYLATE 2 MG TABLET PO SCH ×2 (08:04→17:03)
[2018-01-02 16:13] VITALS: BP 100/64
[2018-01-03 01:11] VITALS: BP 120/61
[2018-01-03 08:00] VITALS: BP 102/61
[2018-01-03] MEDS: BENZTROPINE MESYLATE 2 MG TABLET PO SCH ×2 (08:03→16:54)
[2018-01-03] MEDS: SERTRALINE HCL 50 MG TABLET PO SCH (08:03)
[2018-01-03] MEDS: PYRIDOXINE HCL 50 MG TABLET PO SCH (08:03)
[2018-01-03] MEDS: ISONIAZID 300 MG TABLET PO SCH (08:03)
[2018-01-03] MEDS: HALOPERIDOL 10 MG TABLET PO SCH ×2 (08:03→16:54)
[2018-01-03 16:18] VITALS: BP 119/62
[2018-01-04 05:59] VITALS: BP 105/61
[2018-01-04] MEDS: HALOPERIDOL 10 MG TABLET PO SCH ×2 (08:03→16:32)
[2018-01-04 08:04] VITALS: BP 102/68
[2018-01-04] MEDS: BENZTROPINE MESYLATE 2 MG TABLET PO SCH ×2 (08:04→16:32)
[2018-01-04] MEDS: PYRIDOXINE HCL 50 MG TABLET PO SCH (08:04)
[2018-01-04] MEDS: ISONIAZID 300 MG TABLET PO SCH (08:04)
[2018-01-04] MEDS: SERTRALINE HCL 50 MG TABLET PO SCH (08:04)
[2018-01-04 16:04] VITALS: BP 110/70
[2018-01-05 06:33] VITALS: BP 101/65
[2018-01-05] MEDS: BENZTROPINE MESYLATE 2 MG TABLET PO SCH ×2 (08:09→16:36)
[2018-01-05] MEDS: SERTRALINE HCL 50 MG TABLET PO SCH (08:09)
[2018-01-05] MEDS: ISONIAZID 300 MG TABLET PO SCH (08:09)
[2018-01-05] MEDS: HALOPERIDOL 10 MG TABLET PO SCH ×2 (08:09→16:36)
[2018-01-05] MEDS: PYRIDOXINE HCL 50 MG TABLET PO SCH (08:10)
[2018-01-05 08:26] VITALS: BP 106/67
[2018-01-05 16:02] VITALS: BP 100/62
[2018-01-06 04:16] VITALS: BP 103/64
[2018-01-06] MEDS: PYRIDOXINE HCL 50 MG TABLET PO SCH (08:07)
[2018-01-06] MEDS: BENZTROPINE MESYLATE 2 MG TABLET PO SCH ×2 (08:07→16:16)
[2018-01-06] MEDS: SERTRALINE HCL 50 MG TABLET PO SCH (08:07)
[2018-01-06] MEDS: HALOPERIDOL 10 MG TABLET PO SCH ×2 (08:07→16:16)
[2018-01-06] MEDS: ISONIAZID 300 MG TABLET PO SCH (08:07)
[2018-01-06 08:33] VITALS: BP 102/69
[2018-01-06 16:06] VITALS: BP 106/60
[2018-01-07 05:45] VITALS: BP 108/64
[2018-01-07] MEDS: HALOPERIDOL 10 MG TABLET PO SCH ×2 (08:02→16:41)
[2018-01-07] MEDS: SERTRALINE HCL 50 MG TABLET PO SCH (08:03)
[2018-01-07] MEDS: PYRIDOXINE HCL 50 MG TABLET PO SCH (08:03)
[2018-01-07] MEDS: ISONIAZID 300 MG TABLET PO SCH (08:03)
[2018-01-07] MEDS: BENZTROPINE MESYLATE 2 MG TABLET PO SCH ×2 (08:03→16:41)
[2018-01-07 08:12] VITALS: BP 111/66
[2018-01-07] MEDS ORDERED: DiphenhydrAMINE HCL 50 MG CAPSULE ONE (12:18)
[2018-01-07 16:08] VITALS: BP 115/60
[2018-01-08 06:26] VITALS: BP 103/62
[2018-01-08 08:02] VITALS: BP 88/55
[2018-01-08] MEDS: PYRIDOXINE HCL 50 MG TABLET PO SCH (08:32)
[2018-01-08] MEDS: BENZTROPINE MESYLATE 2 MG TABLET PO SCH ×2 (08:32→16:34)
[2018-01-08] MEDS: SERTRALINE HCL 50 MG TABLET PO SCH (08:32)
[2018-01-08] MEDS: ISONIAZID 300 MG TABLET PO SCH (08:32)
[2018-01-08] MEDS: HALOPERIDOL 10 MG TABLET PO SCH ×2 (09:00→16:34)
[2018-01-08 09:29] VITALS: BP 83/64
[2018-01-08 09:36] VITALS: BP 82/62
[2018-01-08 16:08] VITALS: BP 115/65
[2018-01-09 03:04] VITALS: BP 109/69
[2018-01-09 08:10] VITALS: BP 101/69
[2018-01-09] MEDS: PYRIDOXINE HCL 50 MG TABLET PO SCH (08:18)
[2018-01-09] MEDS: ISONIAZID 300 MG TABLET PO SCH (08:18)
[2018-01-09] MEDS: BENZTROPINE MESYLATE 2 MG TABLET PO SCH ×2 (08:18→16:38)
[2018-01-09] MEDS: HALOPERIDOL 10 MG TABLET PO SCH ×2 (08:18→16:38)
[2018-01-09] MEDS: SERTRALINE HCL 50 MG TABLET PO SCH (08:18)
[2018-01-09 09:16] LABS: BASOPHILS % (AUTO) 0.4 % (0.0-2.0); EOSINOPHILS % (AUTO) 1.5 % (1.0-6.0); HEMATOCRIT 45.5 % (41-53); HEMOGLOBIN 15.7 g/dL (13.5-17.5); LYMPHOCYTES # (AUTO) 2.5 K/uL (1.0-4.8); LYMPHOCYTES % (AUTO) 31.6 % (22.0-44.0); MEAN CORPUSCULAR HEMOGLOBIN 30.8 pg (26.0-34.0); MEAN CORPUSCULAR HGB CONC 34.5 G/dL (31.0-37.0); MEAN CORPUSCULAR VOLUME 89 fL (80-100); MONOCYTES # (AUTO) 0.4 K/uL (0.1-1.0); MONOCYTES % (AUTO) 5.4 % (2.0-9.0); NEUTROPHILS # (AUTO) 4.8 K/uL (1.8-7.7); NEUTROPHILS % (AUTO) 61.1 % (40.0-70.0); PLATELET COUNT (AUTO) 193 K/uL (150-450); RED BLOOD CELL COUNT(AUTO) 5.09 MIL/uL (4.50-5.90); RED CELL DISTRIBUTION WIDTH 13.7 % (11.5-14.5)
[2018-01-09 09:27] LABS: ALANINE AMINOTRANSFERASE 27 U/L (12-78); ALBUMIN 3.7 g/dL (3.4-5.0); ALKALINE PHOSPHATASE 75 U/L (46-116); ANION GAP 9 mmol/L (8-16); ASPARTATE AMINOTRANSFERASE 18 U/L (15-37); BILIRUBIN,TOTAL 0.5 mg/dL (0.1-1.0); CALCIUM, TOTAL 9.1 mg/dL (8.8-10.5); CARBON DIOXIDE 25 mmol/L (22-29); CHLORIDE 106 mmol/L (98-107); CREATININE 0.86 mg/dL (0.60-1.30); GLOMERULAR FILTR. RATE CALC > 60 mL/min (>60); GLUCOSE,RANDOM 102 mg/dL (70-110); POTASSIUM 3.9 mmol/L (3.5-5.1); SODIUM SERUM 140 mmol/L (136-145); TOTAL PROTEIN, SERUM 7.8 g/dL (6.4-8.2); UREA NITROGEN, BLOOD 13 mg/dL (7-18)
[2018-01-09 16:05] VITALS: BP 103/68
[2018-01-10 06:42] VITALS: BP 111/60
[2018-01-10 08:09] VITALS: BP 97/66
[2018-01-10] MEDS: SERTRALINE HCL 50 MG TABLET PO SCH (08:09)
[2018-01-10] MEDS: PYRIDOXINE HCL 50 MG TABLET PO SCH (08:09)
[2018-01-10] MEDS: ISONIAZID 300 MG TABLET PO SCH (08:09)
[2018-01-10] MEDS: BENZTROPINE MESYLATE 2 MG TABLET PO SCH ×2 (08:09→16:35)
[2018-01-10] MEDS: HALOPERIDOL 10 MG TABLET PO SCH ×2 (08:09→16:35)
[2018-01-10] MEDS: HALOPERIDOL DECANOATE 100 MG/ML VIAL IM SCH (09:12)
[2018-01-10 16:09] VITALS: BP 107/72
[2018-01-11 06:36] VITALS: BP 101/60
[2018-01-11] MEDS: BENZTROPINE MESYLATE 2 MG TABLET PO SCH ×2 (08:02→16:40)
[2018-01-11] MEDS: PYRIDOXINE HCL 50 MG TABLET PO SCH (08:02)
[2018-01-11] MEDS: ISONIAZID 300 MG TABLET PO SCH (08:02)
[2018-01-11] MEDS: SERTRALINE HCL 50 MG TABLET PO SCH (08:02)
[2018-01-11] MEDS: HALOPERIDOL 10 MG TABLET PO SCH ×2 (08:03→16:40)
[2018-01-11 08:12] VITALS: BP 113/62
[2018-01-11 16:09] VITALS: BP 103/56
[2018-01-12 02:09] VITALS: BP 100/66
[2018-01-12] MEDS: PYRIDOXINE HCL 50 MG TABLET PO SCH (08:09)
[2018-01-12] MEDS: HALOPERIDOL 10 MG TABLET PO SCH ×2 (08:10→16:41)
[2018-01-12] MEDS: BENZTROPINE MESYLATE 2 MG TABLET PO SCH ×2 (08:10→16:41)
[2018-01-12] MEDS: ISONIAZID 300 MG TABLET PO SCH (08:10)
[2018-01-12] MEDS: SERTRALINE HCL 50 MG TABLET PO SCH (08:10)
[2018-01-12 08:19] VITALS: BP 114/69
[2018-01-12 16:10] VITALS: BP 100/63
[2018-01-13 07:27] VITALS: BP 104/61
[2018-01-13 08:10] VITALS: BP 102/66
[2018-01-13] MEDS: SERTRALINE HCL 50 MG TABLET PO SCH (08:13)
[2018-01-13] MEDS: HALOPERIDOL 10 MG TABLET PO SCH ×2 (08:13→16:19)
[2018-01-13] MEDS: ISONIAZID 300 MG TABLET PO SCH (08:13)
[2018-01-13] MEDS: PYRIDOXINE HCL 50 MG TABLET PO SCH (08:13)
[2018-01-13] MEDS: BENZTROPINE MESYLATE 2 MG TABLET PO SCH ×2 (08:13→16:19)
[2018-01-13 16:11] VITALS: BP 106/63
[2018-01-14 06:12] VITALS: BP 103/60
[2018-01-14] MEDS: BENZTROPINE MESYLATE 2 MG TABLET PO SCH ×2 (08:05→16:36)
[2018-01-14] MEDS: SERTRALINE HCL 50 MG TABLET PO SCH (08:05)
[2018-01-14] MEDS: HALOPERIDOL 10 MG TABLET PO SCH ×2 (08:05→16:36)
[2018-01-14] MEDS: ISONIAZID 300 MG TABLET PO SCH (08:05)
[2018-01-14] MEDS: PYRIDOXINE HCL 50 MG TABLET PO SCH (08:05)
[2018-01-14 08:26] VITALS: BP 100/77
[2018-01-14 16:11] VITALS: BP 103/68
[2018-01-15 06:15] VITALS: BP 105/56
[2018-01-15] MEDS: BENZTROPINE MESYLATE 2 MG TABLET PO SCH ×2 (08:17→16:49)
[2018-01-15] MEDS: SERTRALINE HCL 50 MG TABLET PO SCH (08:17)
[2018-01-15] MEDS: PYRIDOXINE HCL 50 MG TABLET PO SCH (08:17)
[2018-01-15] MEDS: HALOPERIDOL 10 MG TABLET PO SCH ×2 (08:17→16:49)
[2018-01-15] MEDS: ISONIAZID 300 MG TABLET PO SCH (08:17)
[2018-01-15 08:31] VITALS: BP 98/67
[2018-01-15 16:34] VITALS: BP 121/50
[2018-01-16 06:05] VITALS: BP 105/58
[2018-01-16] MEDS: HALOPERIDOL 10 MG TABLET PO SCH ×2 (08:04→16:59)
[2018-01-16] MEDS: BENZTROPINE MESYLATE 2 MG TABLET PO SCH ×2 (08:04→16:59)
[2018-01-16] MEDS: PYRIDOXINE HCL 50 MG TABLET PO SCH (08:04)
[2018-01-16] MEDS: SERTRALINE HCL 50 MG TABLET PO SCH (08:04)
[2018-01-16] MEDS: ISONIAZID 300 MG TABLET PO SCH (08:04)
[2018-01-16 08:27] VITALS: BP 101/69
[2018-01-16 16:07] VITALS: BP 104/75
[2018-01-17 05:36] VITALS: BP 100/61
[2018-01-17] MEDS: HALOPERIDOL 10 MG TABLET PO SCH ×2 (08:06→16:12)
[2018-01-17] MEDS: BENZTROPINE MESYLATE 2 MG TABLET PO SCH ×2 (08:06→16:12)
[2018-01-17] MEDS: ISONIAZID 300 MG TABLET PO SCH (08:06)
[2018-01-17] MEDS: SERTRALINE HCL 50 MG TABLET PO SCH (08:06)
[2018-01-17] MEDS: PYRIDOXINE HCL 50 MG TABLET PO SCH (08:06)
[2018-01-17 08:31] VITALS: BP 97/71
[2018-01-17 16:10] VITALS: BP 103/67
[2018-01-18 02:01] VITALS: BP 114/60
[2018-01-18 08:18] VITALS: BP 113/69
[2018-01-18] MEDS: PYRIDOXINE HCL 50 MG TABLET PO SCH (08:21)
[2018-01-18] MEDS: HALOPERIDOL 10 MG TABLET PO SCH ×2 (08:21→16:01)
[2018-01-18] MEDS: SERTRALINE HCL 50 MG TABLET PO SCH (08:21)
[2018-01-18] MEDS: BENZTROPINE MESYLATE 2 MG TABLET PO SCH ×2 (08:21→16:01)
[2018-01-18] MEDS: ISONIAZID 300 MG TABLET PO SCH (08:21)
[2018-01-18 16:10] VITALS: BP 100/66
[2018-01-19 05:51] VITALS: BP 103/69
[2018-01-19 08:01] VITALS: BP 106/66
[2018-01-19] MEDS: SERTRALINE HCL 50 MG TABLET PO SCH (08:09)
[2018-01-19] MEDS: ISONIAZID 300 MG TABLET PO SCH (08:09)
[2018-01-19] MEDS: BENZTROPINE MESYLATE 2 MG TABLET PO SCH ×2 (08:09→16:03)
[2018-01-19] MEDS: HALOPERIDOL 10 MG TABLET PO SCH ×2 (08:09→16:03)
[2018-01-19] MEDS: PYRIDOXINE HCL 50 MG TABLET PO SCH (08:09)
[2018-01-19 16:16] VITALS: BP 109/65
[2018-01-20 05:53] VITALS: BP 102/88
[2018-01-20] MEDS: ISONIAZID 300 MG TABLET PO SCH (08:06)
[2018-01-20] MEDS: PYRIDOXINE HCL 50 MG TABLET PO SCH (08:07)
[2018-01-20] MEDS: HALOPERIDOL 10 MG TABLET PO SCH ×2 (08:07→16:00)
[2018-01-20] MEDS: SERTRALINE HCL 50 MG TABLET PO SCH (08:07)
[2018-01-20] MEDS: BENZTROPINE MESYLATE 2 MG TABLET PO SCH ×2 (08:07→16:00)
[2018-01-20 08:15] VITALS: BP 113/64
[2018-01-20 16:07] VITALS: BP 100/60
[2018-01-21 00:15] VITALS: BP 101/62
[2018-01-21 08:22] VITALS: BP 102/65
[2018-01-21] MEDS: HALOPERIDOL 10 MG TABLET PO SCH ×2 (08:29→16:11)
[2018-01-21] MEDS: BENZTROPINE MESYLATE 2 MG TABLET PO SCH ×2 (08:29→16:11)
[2018-01-21] MEDS: SERTRALINE HCL 50 MG TABLET PO SCH (08:29)
[2018-01-21] MEDS: ISONIAZID 300 MG TABLET PO SCH (08:29)
[2018-01-21] MEDS: PYRIDOXINE HCL 50 MG TABLET PO SCH (08:29)
[2018-01-21 16:19] VITALS: BP 105/66
[2018-01-22 05:12] VITALS: BP 102/67
[2018-01-22 08:00] VITALS: BP 104/70
[2018-01-22] MEDS: SERTRALINE HCL 50 MG TABLET PO SCH (08:04)
[2018-01-22] MEDS: PYRIDOXINE HCL 50 MG TABLET PO SCH (08:04)
[2018-01-22] MEDS: ISONIAZID 300 MG TABLET PO SCH (08:04)
[2018-01-22] MEDS: HALOPERIDOL 10 MG TABLET PO SCH ×2 (08:04→16:40)
[2018-01-22] MEDS: BENZTROPINE MESYLATE 2 MG TABLET PO SCH ×2 (08:04→16:40)
[2018-01-22 16:06] VITALS: BP 100/64
[2018-01-23 02:40] VITALS: BP 101/61
[2018-01-23 04:08] VITALS: BP 108/62
[2018-01-23] MEDS: BENZTROPINE MESYLATE 2 MG TABLET PO SCH ×2 (08:03→16:32)
[2018-01-23] MEDS: ISONIAZID 300 MG TABLET PO SCH (08:03)
[2018-01-23] MEDS: PYRIDOXINE HCL 50 MG TABLET PO SCH (08:03)
[2018-01-23] MEDS: HALOPERIDOL 10 MG TABLET PO SCH ×2 (08:03→16:32)
[2018-01-23] MEDS: SERTRALINE HCL 50 MG TABLET PO SCH (08:03)
[2018-01-23 08:18] VITALS: BP 98/70
[2018-01-23 16:08] VITALS: BP 100/69
[2018-01-24 00:51] VITALS: BP 101/68
[2018-01-24 08:00] VITALS: BP 106/66
[2018-01-24] MEDS: ISONIAZID 300 MG TABLET PO SCH (08:08)
[2018-01-24] MEDS: HALOPERIDOL 10 MG TABLET PO SCH ×2 (08:08→16:35)
[2018-01-24] MEDS: PYRIDOXINE HCL 50 MG TABLET PO SCH (08:08)
[2018-01-24] MEDS: BENZTROPINE MESYLATE 2 MG TABLET PO SCH ×2 (08:08→16:35)
[2018-01-24] MEDS: SERTRALINE HCL 50 MG TABLET PO SCH (08:08)
[2018-01-24 16:38] VITALS: BP 104/64
[2018-01-25 06:20] VITALS: BP 100/65
[2018-01-25] MEDS: HALOPERIDOL 10 MG TABLET PO SCH ×2 (08:05→16:31)
[2018-01-25] MEDS: ISONIAZID 300 MG TABLET PO SCH (08:05)
[2018-01-25] MEDS: BENZTROPINE MESYLATE 2 MG TABLET PO SCH ×2 (08:05→16:31)
[2018-01-25] MEDS: PYRIDOXINE HCL 50 MG TABLET PO SCH (08:05)
[2018-01-25] MEDS: SERTRALINE HCL 50 MG TABLET PO SCH (08:05)
[2018-01-25 08:56] VITALS: BP 100/64
[2018-01-25 16:36] VITALS: BP 100/62
[2018-01-26 06:23] VITALS: BP 110/66
[2018-01-26] MEDS: SERTRALINE HCL 50 MG TABLET PO SCH (08:17)
[2018-01-26] MEDS: ISONIAZID 300 MG TABLET PO SCH (08:17)
[2018-01-26] MEDS: PYRIDOXINE HCL 50 MG TABLET PO SCH (08:17)
[2018-01-26] MEDS: BENZTROPINE MESYLATE 2 MG TABLET PO SCH ×2 (08:17→16:34)
[2018-01-26] MEDS: HALOPERIDOL 10 MG TABLET PO SCH ×2 (08:17→16:34)
[2018-01-26 08:31] VITALS: BP 101/67
[2018-01-26 16:10] VITALS: BP 118/64
[2018-01-27 06:45] VITALS: BP 107/52
[2018-01-27 08:12] VITALS: BP 100/75
[2018-01-27] MEDS: ISONIAZID 300 MG TABLET PO SCH (08:57)
[2018-01-27] MEDS: SERTRALINE HCL 50 MG TABLET PO SCH (08:57)
[2018-01-27] MEDS: BENZTROPINE MESYLATE 2 MG TABLET PO SCH ×2 (08:57→16:29)
[2018-01-27] MEDS: PYRIDOXINE HCL 50 MG TABLET PO SCH (08:57)
[2018-01-27] MEDS: HALOPERIDOL 10 MG TABLET PO SCH ×2 (09:39→16:29)
[2018-01-27 16:05] VITALS: BP 100/75
[2018-01-28 01:19] VITALS: BP 100/62
[2018-01-28 08:07] VITALS: BP 100/74
[2018-01-28] MEDS: HALOPERIDOL 10 MG TABLET PO SCH ×2 (08:20→16:45)
[2018-01-28] MEDS: PYRIDOXINE HCL 50 MG TABLET PO SCH (08:20)
[2018-01-28] MEDS: SERTRALINE HCL 50 MG TABLET PO SCH (08:20)
[2018-01-28] MEDS: BENZTROPINE MESYLATE 2 MG TABLET PO SCH ×2 (08:20→16:45)
[2018-01-28] MEDS: ISONIAZID 300 MG TABLET PO SCH (08:20)
[2018-01-28 16:05] VITALS: BP 101/67
[2018-01-29 00:53] VITALS: BP 103/64
[2018-01-29 08:00] VITALS: BP 101/63
[2018-01-29] MEDS: PYRIDOXINE HCL 50 MG TABLET PO SCH (08:16)
[2018-01-29] MEDS: HALOPERIDOL 10 MG TABLET PO SCH ×2 (08:16→16:32)
[2018-01-29] MEDS: SERTRALINE HCL 50 MG TABLET PO SCH (08:16)
[2018-01-29] MEDS: ISONIAZID 300 MG TABLET PO SCH (08:16)
[2018-01-29] MEDS: BENZTROPINE MESYLATE 2 MG TABLET PO SCH ×2 (08:16→16:32)
[2018-01-29 17:16] VITALS: BP 100/61
[2018-01-30 01:27] VITALS: BP 103/62
[2018-01-30 08:00] VITALS: BP 106/67
[2018-01-30] MEDS: BENZTROPINE MESYLATE 2 MG TABLET PO SCH ×2 (08:08→16:35)
[2018-01-30] MEDS: ISONIAZID 300 MG TABLET PO SCH (08:08)
[2018-01-30] MEDS: SERTRALINE HCL 50 MG TABLET PO SCH (08:08)
[2018-01-30] MEDS: PYRIDOXINE HCL 50 MG TABLET PO SCH (08:08)
[2018-01-30] MEDS: HALOPERIDOL 10 MG TABLET PO SCH ×2 (08:08→16:35)
[2018-01-30 16:03] VITALS: BP 108/66
[2018-01-31 05:12] VITALS: BP 103/62
[2018-01-31] MEDS: PYRIDOXINE HCL 50 MG TABLET PO SCH (08:11)
[2018-01-31] MEDS: SERTRALINE HCL 50 MG TABLET PO SCH (08:11)
[2018-01-31] MEDS: ISONIAZID 300 MG TABLET PO SCH (08:11)
[2018-01-31] MEDS: BENZTROPINE MESYLATE 2 MG TABLET PO SCH ×2 (08:12→16:03)
[2018-01-31] MEDS: HALOPERIDOL 10 MG TABLET PO SCH ×2 (08:12→16:03)
[2018-01-31 08:17] VITALS: BP 107/66
[2018-01-31 16:11] VITALS: BP 103/64
[2018-02-01 05:40] VITALS: BP 105/58
[2018-02-01] MEDS: ISONIAZID 300 MG TABLET PO SCH (08:11)
[2018-02-01] MEDS: HALOPERIDOL 10 MG TABLET PO SCH ×2 (08:11→16:30)
[2018-02-01] MEDS: PYRIDOXINE HCL 50 MG TABLET PO SCH (08:11)
[2018-02-01] MEDS: BENZTROPINE MESYLATE 2 MG TABLET PO SCH ×2 (08:11→16:30)
[2018-02-01] MEDS: SERTRALINE HCL 50 MG TABLET PO SCH (08:11)
[2018-02-01 08:14] VITALS: BP 117/72
[2018-02-01 16:09] VITALS: BP 101/60
[2018-02-02 06:15] VITALS: BP 103/69
[2018-02-02 08:48] VITALS: BP 103/66
[2018-02-02] MEDS: HALOPERIDOL 10 MG TABLET PO SCH ×2 (08:51→16:34)
[2018-02-02] MEDS: ISONIAZID 300 MG TABLET PO SCH (08:51)
[2018-02-02] MEDS: PYRIDOXINE HCL 50 MG TABLET PO SCH (08:51)
[2018-02-02] MEDS: BENZTROPINE MESYLATE 2 MG TABLET PO SCH ×2 (08:51→16:34)
[2018-02-02] MEDS: SERTRALINE HCL 50 MG TABLET PO SCH (08:51)
[2018-02-02 16:03] VITALS: BP 106/65
[2018-02-03 05:28] VITALS: BP 110/68
[2018-02-03] MEDS: SERTRALINE HCL 50 MG TABLET PO SCH (08:10)
[2018-02-03] MEDS: PYRIDOXINE HCL 50 MG TABLET PO SCH (08:10)
[2018-02-03] MEDS: ISONIAZID 300 MG TABLET PO SCH (08:10)
[2018-02-03] MEDS: HALOPERIDOL 10 MG TABLET PO SCH ×2 (08:10→16:07)
[2018-02-03] MEDS: BENZTROPINE MESYLATE 2 MG TABLET PO SCH ×2 (08:10→16:07)
[2018-02-03 08:20] VITALS: BP 109/64
[2018-02-03 16:28] VITALS: BP 100/60
[2018-02-04 04:38] VITALS: BP 110/68
[2018-02-04] MEDS: BENZTROPINE MESYLATE 2 MG TABLET PO SCH ×2 (08:33→16:04)
[2018-02-04] MEDS: PYRIDOXINE HCL 50 MG TABLET PO SCH (08:33)
[2018-02-04] MEDS: SERTRALINE HCL 50 MG TABLET PO SCH (08:33)
[2018-02-04] MEDS: HALOPERIDOL 10 MG TABLET PO SCH ×2 (08:33→16:04)
[2018-02-04] MEDS: ISONIAZID 300 MG TABLET PO SCH (08:33)
[2018-02-04 08:48] VITALS: BP 112/67
[2018-02-04 16:03] VITALS: BP 103/66
[2018-02-05 00:41] VITALS: BP 110/68
[2018-02-05 08:03] VITALS: BP 102/65
[2018-02-05] MEDS: HALOPERIDOL 10 MG TABLET PO SCH ×2 (08:39→16:32)
[2018-02-05] MEDS: ISONIAZID 300 MG TABLET PO SCH (08:39)
[2018-02-05] MEDS: BENZTROPINE MESYLATE 2 MG TABLET PO SCH ×2 (08:39→16:32)
[2018-02-05] MEDS: SERTRALINE HCL 50 MG TABLET PO SCH (08:39)
[2018-02-05] MEDS: PYRIDOXINE HCL 50 MG TABLET PO SCH (08:39)
[2018-02-05 16:12] VITALS: BP 101/74
[2018-02-06 03:54] VITALS: BP 110/68
[2018-02-06] MEDS: BENZTROPINE MESYLATE 2 MG TABLET PO SCH ×2 (08:23→16:34)
[2018-02-06] MEDS: PYRIDOXINE HCL 50 MG TABLET PO SCH (08:23)
[2018-02-06] MEDS: HALOPERIDOL 10 MG TABLET PO SCH ×2 (08:23→16:34)
[2018-02-06] MEDS: ISONIAZID 300 MG TABLET PO SCH (08:24)
[2018-02-06] MEDS: SERTRALINE HCL 50 MG TABLET PO SCH (08:24)
[2018-02-06 08:25] VITALS: BP 116/64
[2018-02-06 16:16] VITALS: BP 105/66
[2018-02-07 05:03] VITALS: BP 110/68
[2018-02-07 08:06] VITALS: BP 104/76
[2018-02-07] MEDS: BENZTROPINE MESYLATE 2 MG TABLET PO SCH ×2 (08:22→16:34)
[2018-02-07] MEDS: SERTRALINE HCL 50 MG TABLET PO SCH (08:22)
[2018-02-07] MEDS: ISONIAZID 300 MG TABLET PO SCH (08:22)
[2018-02-07] MEDS: HALOPERIDOL 10 MG TABLET PO SCH ×2 (08:22→16:34)
[2018-02-07] MEDS: PYRIDOXINE HCL 50 MG TABLET PO SCH (08:22)
[2018-02-07] MEDS: HALOPERIDOL DECANOATE 100 MG/ML VIAL IM SCH (09:54)
[2018-02-07 16:03] VITALS: BP 113/72
[2018-02-08 02:10] VITALS: BP 103/64
[2018-02-08] MEDS: PYRIDOXINE HCL 50 MG TABLET PO SCH (08:15)
[2018-02-08] MEDS: SERTRALINE HCL 50 MG TABLET PO SCH (08:15)
[2018-02-08] MEDS: BENZTROPINE MESYLATE 2 MG TABLET PO SCH ×2 (08:15→16:31)
[2018-02-08] MEDS: ISONIAZID 300 MG TABLET PO SCH (08:15)
[2018-02-08] MEDS: HALOPERIDOL 10 MG TABLET PO SCH ×2 (08:15→16:31)
[2018-02-08 08:22] VITALS: BP 111/70
[2018-02-08 16:03] VITALS: BP 100/60
[2018-02-09 03:58] VITALS: BP 101/67
[2018-02-09 08:06] VITALS: BP 103/76
[2018-02-09] MEDS: ISONIAZID 300 MG TABLET PO SCH (08:36)
[2018-02-09] MEDS: BENZTROPINE MESYLATE 2 MG TABLET PO SCH ×2 (08:36→16:14)
[2018-02-09] MEDS: SERTRALINE HCL 50 MG TABLET PO SCH (08:36)
[2018-02-09] MEDS: HALOPERIDOL 10 MG TABLET PO SCH ×2 (08:36→16:14)
[2018-02-09] MEDS: PYRIDOXINE HCL 50 MG TABLET PO SCH (08:36)
[2018-02-09 16:00] VITALS: BP 110/92
[2018-02-10 02:33] VITALS: BP 109/67
[2018-02-10 08:27] VITALS: BP 121/74
[2018-02-10] MEDS: HALOPERIDOL 10 MG TABLET PO SCH ×2 (08:51→16:43)
[2018-02-10] MEDS: SERTRALINE HCL 50 MG TABLET PO SCH (08:51)
[2018-02-10] MEDS: BENZTROPINE MESYLATE 2 MG TABLET PO SCH ×2 (08:51→16:43)
[2018-02-10] MEDS: ISONIAZID 300 MG TABLET PO SCH (08:51)
[2018-02-10] MEDS: PYRIDOXINE HCL 50 MG TABLET PO SCH (08:51)
[2018-02-10 16:22] VITALS: BP 104/60
[2018-02-11 05:08] VITALS: BP 107/76
[2018-02-11] MEDS: PYRIDOXINE HCL 50 MG TABLET PO SCH (08:26)
[2018-02-11] MEDS: ISONIAZID 300 MG TABLET PO SCH (08:26)
[2018-02-11] MEDS: BENZTROPINE MESYLATE 2 MG TABLET PO SCH ×2 (08:26→16:34)
[2018-02-11] MEDS: HALOPERIDOL 10 MG TABLET PO SCH ×2 (08:26→16:34)
[2018-02-11] MEDS: SERTRALINE HCL 50 MG TABLET PO SCH (08:26)
[2018-02-11 08:33] VITALS: BP 105/65
[2018-02-11 16:08] VITALS: BP 102/61
[2018-02-12 03:20] VITALS: BP 108/70
[2018-02-12] MEDS: BENZTROPINE MESYLATE 2 MG TABLET PO SCH ×2 (08:15→16:33)
[2018-02-12] MEDS: HALOPERIDOL 10 MG TABLET PO SCH ×2 (08:15→16:33)
[2018-02-12] MEDS: PYRIDOXINE HCL 50 MG TABLET PO SCH (08:15)
[2018-02-12] MEDS: SERTRALINE HCL 50 MG TABLET PO SCH (08:15)
[2018-02-12] MEDS: ISONIAZID 300 MG TABLET PO SCH (08:15)
[2018-02-12 08:22] VITALS: BP 112/79
[2018-02-12 15:58] VITALS: BP 110/68
[2018-02-13 05:41] VITALS: BP 120/81
[2018-02-13 08:09] VITALS: BP 102/71
[2018-02-13] MEDS: ISONIAZID 300 MG TABLET PO SCH (08:11)
[2018-02-13] MEDS: HALOPERIDOL 10 MG TABLET PO SCH ×2 (08:11→16:36)
[2018-02-13] MEDS: BENZTROPINE MESYLATE 2 MG TABLET PO SCH ×2 (08:11→16:36)
[2018-02-13] MEDS: SERTRALINE HCL 50 MG TABLET PO SCH (08:11)
[2018-02-13] MEDS: PYRIDOXINE HCL 50 MG TABLET PO SCH (08:11)
[2018-02-13 16:09] VITALS: BP 109/71
[2018-02-14 06:13] VITALS: BP 121/68
[2018-02-14 08:20] VITALS: BP 107/69
[2018-02-14] MEDS: PYRIDOXINE HCL 50 MG TABLET PO SCH (08:23)
[2018-02-14] MEDS: SERTRALINE HCL 50 MG TABLET PO SCH (08:23)
[2018-02-14] MEDS: HALOPERIDOL 10 MG TABLET PO SCH ×2 (08:23→16:45)
[2018-02-14] MEDS: ISONIAZID 300 MG TABLET PO SCH (08:23)
[2018-02-14] MEDS: BENZTROPINE MESYLATE 2 MG TABLET PO SCH ×2 (08:23→16:45)
[2018-02-14 16:01] VITALS: BP 102/60
[2018-02-15 06:35] VITALS: BP 101/65
[2018-02-15 08:03] VITALS: BP 113/69
[2018-02-15] MEDS: PYRIDOXINE HCL 50 MG TABLET PO SCH (08:09)
[2018-02-15] MEDS: ISONIAZID 300 MG TABLET PO SCH (08:09)
[2018-02-15] MEDS: HALOPERIDOL 10 MG TABLET PO SCH ×2 (08:09→16:27)
[2018-02-15] MEDS: BENZTROPINE MESYLATE 2 MG TABLET PO SCH ×2 (08:09→16:27)
[2018-02-15] MEDS: SERTRALINE HCL 50 MG TABLET PO SCH (08:09)
[2018-02-15 16:02] VITALS: BP 109/66
[2018-02-16 05:34] VITALS: BP 110/68
[2018-02-16 08:02] VITALS: BP 106/79
[2018-02-16] MEDS: SERTRALINE HCL 50 MG TABLET PO SCH (08:12)
[2018-02-16] MEDS: HALOPERIDOL 10 MG TABLET PO SCH ×2 (08:12→16:29)
[2018-02-16] MEDS: ISONIAZID 300 MG TABLET PO SCH (08:12)
[2018-02-16] MEDS: PYRIDOXINE HCL 50 MG TABLET PO SCH (08:12)
[2018-02-16] MEDS: BENZTROPINE MESYLATE 2 MG TABLET PO SCH ×2 (08:12→16:30)
[2018-02-16 16:07] VITALS: BP_SYST 101; BP_DIAS 70; BP_DIAS 78
[2018-02-17 06:46] VITALS: BP 107/73
[2018-02-17] MEDS: BENZTROPINE MESYLATE 2 MG TABLET PO SCH ×2 (08:05→16:13)
[2018-02-17] MEDS: SERTRALINE HCL 50 MG TABLET PO SCH (08:05)
[2018-02-17] MEDS: PYRIDOXINE HCL 50 MG TABLET PO SCH (08:05)
[2018-02-17] MEDS: HALOPERIDOL 10 MG TABLET PO SCH ×2 (08:05→16:13)
[2018-02-17] MEDS: ISONIAZID 300 MG TABLET PO SCH (08:05)
[2018-02-17 08:16] VITALS: BP 105/70
[2018-02-17 16:07] VITALS: BP 102/66
[2018-02-18 05:04] VITALS: BP 110/68
[2018-02-18] MEDS: HALOPERIDOL 10 MG TABLET PO SCH ×2 (08:04→16:12)
[2018-02-18] MEDS: BENZTROPINE MESYLATE 2 MG TABLET PO SCH ×2 (08:04→16:12)
[2018-02-18] MEDS: PYRIDOXINE HCL 50 MG TABLET PO SCH (08:04)
[2018-02-18] MEDS: SERTRALINE HCL 50 MG TABLET PO SCH (08:04)
[2018-02-18] MEDS: ISONIAZID 300 MG TABLET PO SCH (08:04)
[2018-02-18 08:13] VITALS: BP 109/74
[2018-02-18 16:13] VITALS: BP 106/71
[2018-02-19 01:17] VITALS: BP 110/68
[2018-02-19] MEDS: PYRIDOXINE HCL 50 MG TABLET PO SCH (08:05)
[2018-02-19] MEDS: HALOPERIDOL 10 MG TABLET PO SCH ×2 (08:05→16:37)
[2018-02-19] MEDS: BENZTROPINE MESYLATE 2 MG TABLET PO SCH ×2 (08:05→16:37)
[2018-02-19] MEDS: ISONIAZID 300 MG TABLET PO SCH (08:05)
[2018-02-19] MEDS: SERTRALINE HCL 50 MG TABLET PO SCH (08:05)
[2018-02-19 08:11] VITALS: BP 111/68
[2018-02-19 16:03] VITALS: BP 112/64
[2018-02-20 04:13] VITALS: BP 106/68
[2018-02-20 08:03] VITALS: BP 105/73
[2018-02-20] MEDS: HALOPERIDOL 10 MG TABLET PO SCH ×2 (08:14→16:31)
[2018-02-20] MEDS: ISONIAZID 300 MG TABLET PO SCH (08:14)
[2018-02-20] MEDS: PYRIDOXINE HCL 50 MG TABLET PO SCH (08:14)
[2018-02-20] MEDS: SERTRALINE HCL 50 MG TABLET PO SCH (08:14)
[2018-02-20] MEDS: BENZTROPINE MESYLATE 2 MG TABLET PO SCH ×2 (08:14→16:31)
[2018-02-20 16:19] VITALS: BP 105/65
[2018-02-21 01:23] VITALS: BP 103/63
[2018-02-21 08:04] VITALS: BP 122/63
[2018-02-21] MEDS: PYRIDOXINE HCL 50 MG TABLET PO SCH (08:04)
[2018-02-21] MEDS: HALOPERIDOL 10 MG TABLET PO SCH ×2 (08:04→16:50)
[2018-02-21] MEDS: ISONIAZID 300 MG TABLET PO SCH (08:04)
[2018-02-21] MEDS: BENZTROPINE MESYLATE 2 MG TABLET PO SCH ×2 (08:04→16:50)
[2018-02-21] MEDS: SERTRALINE HCL 50 MG TABLET PO SCH (08:04)
[2018-02-21 17:24] VITALS: BP 101/79
[2018-02-22 00:48] VITALS: BP 110/68
[2018-02-22] MEDS: ISONIAZID 300 MG TABLET PO SCH (08:06)
[2018-02-22] MEDS: SERTRALINE HCL 50 MG TABLET PO SCH (08:06)
[2018-02-22] MEDS: HALOPERIDOL 10 MG TABLET PO SCH ×2 (08:06→16:02)
[2018-02-22] MEDS: PYRIDOXINE HCL 50 MG TABLET PO SCH (08:06)
[2018-02-22] MEDS: BENZTROPINE MESYLATE 2 MG TABLET PO SCH ×2 (08:06→16:02)
[2018-02-22 08:08] VITALS: BP 113/71
[2018-02-22] MEDS ORDERED: FLUTICASONE PROPIONATE 50 MCG/SPRAY 16 GM NASAL SPRAY NASAL PRN (12:45)
[2018-02-22 16:04] VITALS: BP 102/67
[2018-02-23 00:44] VITALS: BP 110/72
[2018-02-23] MEDS: PYRIDOXINE HCL 50 MG TABLET PO SCH (08:24)
[2018-02-23] MEDS: HALOPERIDOL 10 MG TABLET PO SCH ×2 (08:24→16:48)
[2018-02-23] MEDS: BENZTROPINE MESYLATE 2 MG TABLET PO SCH ×2 (08:24→16:48)
[2018-02-23] MEDS: SERTRALINE HCL 50 MG TABLET PO SCH (08:24)
[2018-02-23] MEDS: ISONIAZID 300 MG TABLET PO SCH (08:24)
[2018-02-23 08:28] VITALS: BP 113/75
[2018-02-23 16:03] VITALS: BP 106/64
[2018-02-24 06:11] VITALS: BP 103/71
[2018-02-24 08:30] VITALS: BP 106/72
[2018-02-24] MEDS: HALOPERIDOL 10 MG TABLET PO SCH ×2 (08:42→16:13)
[2018-02-24] MEDS: ISONIAZID 300 MG TABLET PO SCH (08:42)
[2018-02-24] MEDS: PYRIDOXINE HCL 50 MG TABLET PO SCH (08:42)
[2018-02-24] MEDS: BENZTROPINE MESYLATE 2 MG TABLET PO SCH ×2 (08:42→16:13)
[2018-02-24] MEDS: SERTRALINE HCL 50 MG TABLET PO SCH (08:42)
[2018-02-24 16:06] VITALS: BP 101/60
[2018-02-25 04:46] VITALS: BP 110/68
[2018-02-25 08:04] VITALS: BP 125/68
[2018-02-25] MEDS: HALOPERIDOL 10 MG TABLET PO SCH ×2 (08:10→16:03)
[2018-02-25] MEDS: BENZTROPINE MESYLATE 2 MG TABLET PO SCH ×2 (08:10→16:03)
[2018-02-25] MEDS: PYRIDOXINE HCL 50 MG TABLET PO SCH (08:10)
[2018-02-25] MEDS: SERTRALINE HCL 50 MG TABLET PO SCH (08:10)
[2018-02-25] MEDS: ISONIAZID 300 MG TABLET PO SCH (08:10)
[2018-02-25 16:02] VITALS: BP 100/60
[2018-02-26 00:05] VITALS: BP 101/62
[2018-02-26] MEDS: ISONIAZID 300 MG TABLET PO SCH (08:13)
[2018-02-26] MEDS: PYRIDOXINE HCL 50 MG TABLET PO SCH (08:13)
[2018-02-26] MEDS: HALOPERIDOL 10 MG TABLET PO SCH ×2 (08:13→16:11)
[2018-02-26] MEDS: SERTRALINE HCL 50 MG TABLET PO SCH (08:13)
[2018-02-26] MEDS: BENZTROPINE MESYLATE 2 MG TABLET PO SCH ×2 (08:13→16:11)
[2018-02-26 08:43] VITALS: BP 107/68
[2018-02-26 16:22] VITALS: BP 127/66
[2018-02-27 02:46] VITALS: BP 121/68
[2018-02-27] MEDS: HALOPERIDOL 10 MG TABLET PO SCH ×2 (08:04→16:41)
[2018-02-27] MEDS: SERTRALINE HCL 50 MG TABLET PO SCH (08:04)
[2018-02-27] MEDS: BENZTROPINE MESYLATE 2 MG TABLET PO SCH ×2 (08:04→16:41)
[2018-02-27] MEDS: ISONIAZID 300 MG TABLET PO SCH (08:04)
[2018-02-27] MEDS: PYRIDOXINE HCL 50 MG TABLET PO SCH (08:04)
[2018-02-27 08:18] VITALS: BP 108/70
[2018-02-27 16:11] VITALS: BP 101/60
[2018-02-28 00:54] VITALS: BP 110/68
[2018-02-28 08:04] VITALS: BP 101/61
[2018-02-28] MEDS: PYRIDOXINE HCL 50 MG TABLET PO SCH (08:19)
[2018-02-28] MEDS: BENZTROPINE MESYLATE 2 MG TABLET PO SCH ×2 (08:19→16:02)
[2018-02-28] MEDS: HALOPERIDOL 10 MG TABLET PO SCH ×2 (08:19→16:02)
[2018-02-28] MEDS: ISONIAZID 300 MG TABLET PO SCH (08:19)
[2018-02-28] MEDS: SERTRALINE HCL 50 MG TABLET PO SCH (08:19)
[2018-02-28 16:01] VITALS: BP 104/67
[2018-02-28 16:30] VITALS: BP 100/67
[2018-03-01 04:27] VITALS: BP_SYST 100; BP_SYST 120; BP_DIAS 65; BP_DIAS 81
[2018-03-01] MEDS: ISONIAZID 300 MG TABLET PO SCH (08:19)
[2018-03-01] MEDS: BENZTROPINE MESYLATE 2 MG TABLET PO SCH ×2 (08:19→16:30)
[2018-03-01] MEDS: SERTRALINE HCL 50 MG TABLET PO SCH (08:19)
[2018-03-01] MEDS: HALOPERIDOL 10 MG TABLET PO SCH ×2 (08:19→16:30)
[2018-03-01] MEDS: PYRIDOXINE HCL 50 MG TABLET PO SCH (08:19)
[2018-03-01 08:31] VITALS: BP 107/75
[2018-03-01 16:07] VITALS: BP 116/72
[2018-03-02 00:36] VITALS: BP 110/86
[2018-03-02 08:08] VITALS: BP 108/81
[2018-03-02] MEDS: SERTRALINE HCL 50 MG TABLET PO SCH (08:39)
[2018-03-02] MEDS: ISONIAZID 300 MG TABLET PO SCH (08:39)
[2018-03-02] MEDS: BENZTROPINE MESYLATE 2 MG TABLET PO SCH ×2 (08:39→16:33)
[2018-03-02] MEDS: PYRIDOXINE HCL 50 MG TABLET PO SCH (08:39)
[2018-03-02] MEDS: HALOPERIDOL 10 MG TABLET PO SCH ×2 (08:39→16:33)
[2018-03-02 16:14] VITALS: BP 112/64
[2018-03-03 04:44] VITALS: BP 103/69
[2018-03-03] MEDS: ISONIAZID 300 MG TABLET PO SCH (08:09)
[2018-03-03] MEDS: HALOPERIDOL 10 MG TABLET PO SCH ×2 (08:09→16:55)
[2018-03-03] MEDS: SERTRALINE HCL 50 MG TABLET PO SCH (08:09)
[2018-03-03] MEDS: PYRIDOXINE HCL 50 MG TABLET PO SCH (08:09)
[2018-03-03] MEDS: BENZTROPINE MESYLATE 2 MG TABLET PO SCH ×2 (08:09→16:55)
[2018-03-03 08:19] VITALS: BP 103/75
[2018-03-03 16:01] VITALS: BP 116/75
[2018-03-04 01:26] VITALS: BP 104/63
[2018-03-04 08:04] VITALS: BP 109/68
[2018-03-04] MEDS: HALOPERIDOL 10 MG TABLET PO SCH ×2 (08:08→16:22)
[2018-03-04] MEDS: PYRIDOXINE HCL 50 MG TABLET PO SCH (08:08)
[2018-03-04] MEDS: BENZTROPINE MESYLATE 2 MG TABLET PO SCH ×2 (08:08→16:23)
[2018-03-04] MEDS: ISONIAZID 300 MG TABLET PO SCH (08:08)
[2018-03-04] MEDS: SERTRALINE HCL 50 MG TABLET PO SCH (08:08)
[2018-03-04 16:03] VITALS: BP 103/67
[2018-03-05 05:53] VITALS: BP 103/75
[2018-03-05] MEDS: BENZTROPINE MESYLATE 2 MG TABLET PO SCH ×2 (08:29→16:35)
[2018-03-05] MEDS: HALOPERIDOL 10 MG TABLET PO SCH ×2 (08:29→16:35)
[2018-03-05] MEDS: SERTRALINE HCL 50 MG TABLET PO SCH (08:29)
[2018-03-05] MEDS: ISONIAZID 300 MG TABLET PO SCH (08:29)
[2018-03-05] MEDS: PYRIDOXINE HCL 50 MG TABLET PO SCH (08:29)
[2018-03-05 08:34] VITALS: BP 116/79
[2018-03-05 16:08] VITALS: BP 105/65
[2018-03-06 05:41] VITALS: BP 113/76
[2018-03-06] MEDS: ISONIAZID 300 MG TABLET PO SCH (08:04)
[2018-03-06] MEDS: SERTRALINE HCL 50 MG TABLET PO SCH (08:04)
[2018-03-06] MEDS: PYRIDOXINE HCL 50 MG TABLET PO SCH (08:04)
[2018-03-06] MEDS: HALOPERIDOL 10 MG TABLET PO SCH ×2 (08:04→16:31)
[2018-03-06] MEDS: BENZTROPINE MESYLATE 2 MG TABLET PO SCH ×2 (08:04→16:31)
[2018-03-06 08:07] VITALS: BP 110/66
[2018-03-06 16:05] VITALS: BP 103/65
[2018-03-07 00:38] VITALS: BP 105/64
[2018-03-07] MEDS: HALOPERIDOL 10 MG TABLET PO SCH ×2 (08:09→16:51)
[2018-03-07] MEDS: ISONIAZID 300 MG TABLET PO SCH (08:09)
[2018-03-07] MEDS: BENZTROPINE MESYLATE 2 MG TABLET PO SCH ×2 (08:09→16:51)
[2018-03-07] MEDS: SERTRALINE HCL 50 MG TABLET PO SCH (08:09)
[2018-03-07] MEDS: PYRIDOXINE HCL 50 MG TABLET PO SCH (08:09)
[2018-03-07 08:45] VITALS: BP 109/72
[2018-03-07] MEDS: HALOPERIDOL DECANOATE 100 MG/ML VIAL IM SCH (08:57)
[2018-03-07 16:57] VITALS: BP 116/77
[2018-03-08 04:32] VITALS: BP 104/65
[2018-03-08] MEDS: BENZTROPINE MESYLATE 2 MG TABLET PO SCH ×2 (08:01→16:35)
[2018-03-08] MEDS: HALOPERIDOL 10 MG TABLET PO SCH ×2 (08:01→16:35)
[2018-03-08] MEDS: PYRIDOXINE HCL 50 MG TABLET PO SCH (08:01)
[2018-03-08] MEDS: ISONIAZID 300 MG TABLET PO SCH (08:01)
[2018-03-08] MEDS: SERTRALINE HCL 50 MG TABLET PO SCH (08:01)
[2018-03-08 08:06] VITALS: BP 109/68
[2018-03-08 16:05] VITALS: BP 116/68
[2018-03-09 00:28] VITALS: BP 119/76
[2018-03-09] MEDS: HALOPERIDOL 10 MG TABLET PO SCH ×2 (08:06→16:33)
[2018-03-09] MEDS: ISONIAZID 300 MG TABLET PO SCH (08:06)
[2018-03-09] MEDS: PYRIDOXINE HCL 50 MG TABLET PO SCH (08:06)
[2018-03-09] MEDS: SERTRALINE HCL 50 MG TABLET PO SCH (08:06)
[2018-03-09] MEDS: BENZTROPINE MESYLATE 2 MG TABLET PO SCH ×2 (08:06→16:33)
[2018-03-09 08:09] VITALS: BP 137/81
[2018-03-09 16:01] VITALS: BP 110/72
[2018-03-10] VITALS: BP 110/79
[2018-03-10 08:08] VITALS: BP 110/78
[2018-03-10] MEDS: ISONIAZID 300 MG TABLET PO SCH (08:16)
[2018-03-10] MEDS: HALOPERIDOL 10 MG TABLET PO SCH ×2 (08:16→16:28)
[2018-03-10] MEDS: BENZTROPINE MESYLATE 2 MG TABLET PO SCH ×2 (08:16→16:28)
[2018-03-10] MEDS: SERTRALINE HCL 50 MG TABLET PO SCH (08:16)
[2018-03-10] MEDS: PYRIDOXINE HCL 50 MG TABLET PO SCH (08:16)
[2018-03-10 16:11] VITALS: BP 101/61
[2018-03-11] MEDS ORDERED: PYRI50 PO (03:59)
[2018-03-11] MEDS ORDERED: ISON100L PO (03:59)
[2018-03-11] MEDS ORDERED: HALO100V4 IM (03:59)
[2018-03-11] MEDS ORDERED: INH PO (04:15)
[2018-03-11 05:11] VITALS: BP 102/60
[2018-03-11] MEDS ORDERED: ISON300T17 PO (06:14)
[2018-03-11 08:06] VITALS: BP 116/68
[2018-03-11] MEDS: ISONIAZID 300 MG TABLET PO SCH (08:17)
[2018-03-11] MEDS: HALOPERIDOL 10 MG TABLET PO SCH (08:17)
[2018-03-11] MEDS: BENZTROPINE MESYLATE 2 MG TABLET PO SCH (08:17)
[2018-03-11] MEDS: PYRIDOXINE HCL 50 MG TABLET PO SCH (08:17)
[2018-03-11] MEDS: SERTRALINE HCL 50 MG TABLET PO SCH (08:17)
== END 2018-03-11 09:50 | DRG 885 ==
LOC: B2X 17:58
PROVIDERS: ADMIT Psychiatry & Neurology Psychiatry; ATTEND Psychiatry & Neurology Psychiatry
DX: F25.0 Schizoaffective disorder, bipolar type (principal); F79 Unspecified intellectual disabilities; E78.5 Hyperlipidemia, unspecified; F41.9 Anxiety disorder, unspecified; Z91.19 Patient's noncompliance with other medical treatment and regimen; Z79.899 Other long term (current) drug therapy
CPT/HCPCS: 83036; 84439; 84443; 87081; 90471; J1631